=== PATIENT | female | born 1945 | race Caucasian/White ===

== ENCOUNTER 2016-12-26 21:51 | Emergency (ER) | payer MEDICARE, MEDICAID ==
[2016-12-26 22:17] VITALS: BP 122/60
--- NOTE | 2016-12-26 23:12 | EDM.PDOC ---
ED HPI GENERAL MEDICAL PROBLEM - General Chief Complaint: ENT Problem Stated Complaint: EAR PROBLEMS, [id number] Time Seen by Provider: 12/26/16 22:45 Source of Information: Reports: Patient History Limitations: Reports: No Limitations - History of Present Illness INITIAL COMMENTS - FREE TEXT/NARRATIVE: Pain to right ear since friday, no other symptoms, does wear hearing aid, has not been able to wear all week. tylenol and ibuprofen not helping Right Ear Pain Score (Numeric/FACES): 7 - Related Data Allergies Allergy/AdvReac Type Severity Reaction Status Date / Time No Known Allergies Allergy Verified 12/26/16 22:05 Home Meds: Home Meds Acetaminophen [Tylenol Arthritis Pain] 1,300 mg PO DAILY PRN 04/18/14 [History] Aspirin 81 mg PO DAILY 12/26/14 [History] Celecoxib 200 mg PO DAILY 12/26/14 [History] Glimepiride 1 mg PO DAILY 12/26/14 [History] atorvaSTATin [Lipitor] 10 mg PO BEDTIME 12/26/14 [History] metFORMIN [Glucophage] 500 mg PO BIDMEALS 12/26/14 [History] Pantoprazole [ProTONIX] 40 mg PO ACBREAKFAST #30 tab.cr 12/28/14 [Rx] Past Medical History HEENT History: Reports: Hard of Hearing Cardiovascular History: Reports: High Cholesterol Respiratory History: Reports: COPD, Pneumonia, Recurrent Gastrointestinal History: Reports: GERD Musculoskeletal History: Reports: Osteoarthritis Endocrine/Metabolic History: Reports: Diabetes, Type II - Infectious Disease History Infectious Disease History: Reports: Chicken Pox, Measles, Mumps - Past Surgical History GI Surgical History: Reports: Appendectomy, Cholecystectomy Social & Family History - Tobacco Use Smoking Status *Q: Current Every Day Smoker Years of Tobacco use: 53 Packs/Tins Daily: 1 Second Hand Smoke Exposure: Yes - Caffeine Use Caffeine Use: Reports: None - Recreational Drug Use Recreational Drug Use: No - Living Situation & Occupation Living situation: Reports: with Family Occupation: Employed ED ROS ENT - Review of Systems Review Of Systems: ROS reveals no pertinent complaints other than HPI. ED EXAM, ENT - Physical Exam Exam: See Below Exam Limited By: No Limitations General Appearance: Alert, Mild Distress Eye Exam: Bilateral Eye: EOMI Ears: Hearing Loss, Auricular Erythema, Auricular Tenderness, Canal Swelling Nose: Normal Inspection Mouth/Throat: Normal Inspection Head: Atraumatic, Normocephalic Neck: Normal Inspection. No: Lymphadenopathy (L), Lymphadenopathy (R) Respiratory/Chest: No Respiratory Distress, Lungs Clear Cardiovascular: Normal Peripheral Pulses GI/Abdominal: Normal Bowel Sounds, Soft Extremities: Normal Inspection Neurological: Alert, Oriented, Normal Cognition Course - Vital Signs Last Recorded V/S: Last Vital Signs Temp 97.8 F 12/26/16 22:07 Pulse 94 12/26/16 22:07 Resp 22 H 12/26/16 22:07 BP 122/60 12/26/16 22:07 Pulse Ox 94 L 12/26/16 22:07 - Orders/Labs/Meds Meds: Medications Discontinued Medications Generic Name Dose Route Start Last Admin Trade Name Freq PRN Reason Stop Dose Admin Neomycin/Polymyxin/Hydrocortisone Confirm 12/26/16 23:20 Cortisporin Otic Susp Administered 12/26/16 23:21 Dose 10 ml .ROUTE .STK-MED ONE Departure - Departure Time of Disposition: 23:09 Disposition: Home, Self-Care 01 Condition: Good Clinical Impression: Otitis externa Qualifiers: Otitis externa type: unspecified type Chronicity: acute Laterality: right Qualified Code(s): H60.501 - Unspecified acute noninfective otitis externa, right ear - Discharge Information Instructions: Otitis Externa, [id number] Forms: ED Department Discharge Additional Instructions: ofloxacin ear drops 1 to right ear daily for one week do not wear hearing aid until ear canal healed recheck in clinic in one week tylenol or ibuprofen for discomfort
[2016-12-26] MEDS ORDERED: Hydrocortisone/Neomycin/Polymyxin B Otic Susp 10 ML Bottle EARRT ONE (23:20)
[2016-12-26] MEDS ORDERED: Hydrocortisone/Neomycin/Polymyxin B Otic Susp 10 ML Bottle ONE (23:20)
== END 2016-12-26 23:23 | disposition home or self-care (01) ==
LOC: DL.ED 21:51
DX: H60.501 Unspecified acute noninfective otitis externa, right ear (principal); E78.00 Pure hypercholesterolemia, unspecified; J44.9 Chronic obstructive pulmonary disease, unspecified; K21.9 Gastro-esophageal reflux disease without esophagitis; M19.90 Unspecified osteoarthritis, unspecified site; E11.9 Type 2 diabetes mellitus without complications; F17.210 Nicotine dependence, cigarettes, uncomplicated; Z87.01 Personal history of pneumonia (recurrent); Z90.49 Acquired absence of other specified parts of digestive tract; Z79.82 Long term (current) use of aspirin; Z79.899 Other long term (current) drug therapy
CPT/HCPCS: 99283; A9270

== ENCOUNTER 2017-02-22 09:48 | Emergency (ER) | payer MEDICARE, MEDICAID ==
[2017-02-22 10:15] VITALS: BP 154/70
[2017-02-22] MEDS ORDERED: Acetaminophen/HYDROcodone 325-5 MG Tab PO ONE (10:40)
--- NOTE | 2017-02-22 10:47 | EDM.PDOC ---
ED HPI GENERAL MEDICAL PROBLEM - General Chief Complaint: Lower Extremity Injury/Pain Stated Complaint: LEFT LEG PAIN Time Seen by Provider: 02/22/17 10:32 Source of Information: Reports: Patient History Limitations: Reports: No Limitations - History of Present Illness INITIAL COMMENTS - FREE TEXT/NARRATIVE: Patient comes emergency department today with complaints of left hip pain from a fall that she had approximately 4 days ago. 4 days ago the patient was walking down steps when she slipped and fell on the last 3 steps landing on her buttocks. She did not hit her head she did not have a loss of consciousness she denies any head neck or back pain. Since that time she has complained of left posterior hip pain that radiates down her left leg. She denies any pain to her knee femur tib-fib ankle or foot. Just radiating pain from her left hip down her left leg. She has not tried any Tylenol or ibuprofen until last night when she tried tramadol which did nothing for her pain she reports. She is able to ambulate without difficulty. She denies any difficulty with bowel movements. She denies any back pain. She denies any hematuria dysuria or urinary frequency. She denies any numbness or tingling to her lower left extremity. Left Ankle Pain Score (Numeric/FACES): 10 - Related Data Allergies Allergy/AdvReac Type Severity Reaction Status Date / Time bee venom protein (honey bee) Allergy Swelling Verified 02/22/17 10:15 Home Meds: Home Meds Aspirin 81 mg PO DAILY 12/26/14 [History] Celecoxib 200 mg PO DAILY 12/26/14 [History] Glimepiride 1 mg PO DAILY 12/26/14 [History] atorvaSTATin [Lipitor] 10 mg PO BEDTIME 12/26/14 [History] metFORMIN [Glucophage] 500 mg PO BIDMEALS 12/26/14 [History] Pantoprazole [ProTONIX] 40 mg PO ACBREAKFAST #30 tab.cr 12/28/14 [Rx] Fluticasone/Salmeterol [Advair Diskus 100-50] 1 puff INH DAILY 02/22/17 [History ] Past Medical History HEENT History: Reports: Hard of Hearing, Impaired Vision Other HEENT History: wears glasses Cardiovascular History: Reports: High Cholesterol Respiratory History: Reports: COPD, Pneumonia, Recurrent Gastrointestinal History: Reports: GERD Genitourinary History: Reports: None EXERCISE SPECIALIST History: Reports: None Musculoskeletal History: Reports: Osteoarthritis Neurological History: Reports: None Psychiatric History: Reports: None Endocrine/Metabolic History: Reports: Diabetes, Type II Hematologic History: Reports: None Immunologic History: Reports: None Oncologic (Cancer) History: Reports: None Dermatologic History: Reports: None - Infectious Disease History Infectious Disease History: Reports: Chicken Pox, Measles, Mumps - Past Surgical History Head Surgeries/Procedures: Reports: None GI Surgical History: Reports: Appendectomy, Cholecystectomy Social & Family History - Tobacco Use Smoking Status *Q: Current Every Day Smoker Years of Tobacco use: 53 Packs/Tins Daily: 1 Second Hand Smoke Exposure: No - Caffeine Use Caffeine Use: Reports: Coffee - Recreational Drug Use Recreational Drug Use: No - Living Situation & Occupation Living situation: Reports: with Family Occupation: Employed Review of Systems - Review of Systems Review Of Systems: ROS reveals no pertinent complaints other than HPI. ED EXAM, GENERAL - Physical Exam Exam: See Below Exam Limited By: No Limitations General Appearance: Alert, WD/WN, No Apparent Distress Eye Exam: Bilateral Eye: Normal Inspection Ears: Normal External Exam, Normal Canal, Normal TMs, Other (No hemotympanum) Nose: Normal Inspection, Normal Mucosa, No Blood Throat/Mouth: Normal Inspection, Normal Lips, Normal Teeth, Normal Oropharynx, Normal Voice Head: Atraumatic, Normocephalic Neck: Normal Inspection, Supple, Non-Tender, Full Range of Motion Respiratory/Chest: No Respiratory Distress, Lungs Clear Cardiovascular: Normal Peripheral Pulses, Regular Rate, Rhythm Peripheral Pulses: 2+: Radial (L), Radial (R), Posterior Tibial (L), Posterior Tibial (R), Dorsalis Pedis (L), Dorsalis Pedis (R) GI/Abdominal: Normal Bowel Sounds, Soft, Non-Tender, No Distention, Pelvis Stable (Female) Exam: Deferred Rectal (Female) Exam: Deferred Back Exam: Normal Inspection, Full Range of Motion. No: Decreased Range of Motion, Muscle Spasm, Paraspinal Tenderness, Vertebral Tenderness Extremities: Normal Inspection, Normal Range of Motion, No Pedal Edema, Normal Capillary Refill, Other (Examination of the pelvis and left leg. On the left leg there is a small faded bruise approximately 4 cm down on the left lateral aspect of the leg below the patella. There is no crepitus or bony deformity. Examination of the foot ankle knee femur and tib-fib region are otherwise unremarkable with normal range of motion and no tenderness. Palpation of the left hip does elicit some pain primarily soft tissue palpation on the posterior aspect of the left buttocks. There is no bruising swelling deformity or crepitus.) Neurological: Alert, Oriented, CN II-XII Intact, Normal Cognition, Normal Reflexes Psychiatric: Normal Affect, Normal Mood Skin Exam: Warm, Dry, Intact, Normal Color, No Rash Lymphatic: No Adenopathy Course - Vital Signs Last Recorded V/S: Last Vital Signs Temp 36.3 C 02/22/17 10:11 Pulse 97 02/22/17 10:11 Resp 16 02/22/17 10:11 BP 154/70 H 02/22/17 10:11 Pulse Ox 95 02/22/17 10:11 - Orders/Labs/Meds Orders: Active Orders 24 hr Category Date Time Status Hip Min 2V or 3V w Pelvis Lt [CR] Stat Exams 02/22/17 10:37 Taken Meds: Medications Discontinued Medications Generic Name Dose Route Start Last Admin Trade Name Javy PRN Reason Stop Dose Admin Hydrocodone Bitart/Acetaminophen 1 tab 02/22/17 10:40 02/22/17 10:49 [place] 325-5 Mg PO 02/22/17 10:41 1 tab ONETIME ONE Administration - Radiology Interpretation Free Text/Narrative:: Per radiology no acute fracture. Degenerative changes of the left greater than the right hip. - Re-Assessments/Exams Free Text/Narrative Re-Assessment/Exam: 02/22/17 11:50 Patient's pain was much improved following the hydrocodone. I wonder if this is not a sciatica irritation due to the presentation of the buttocks pain that radiates down her leg. 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 Departure - Departure Time of Disposition: 11:50 Disposition: Home, Self-Care 01 Clinical Impression: Injury of left sciatic nerve Qualifiers: Encounter type: initial encounter Qualified Code(s): S74.02XA - Injury of sciatic nerve at hip and thigh level, left leg, initial encounter - Discharge Information Instructions: Sciatica With Rehab-Sports[facility], Sciatica, [id number] Forms: ED Department Discharge Additional Instructions: Tylenol and/or ibuprofen as needed for pain. Rice therapy rest ice compression and elevation as much as possible. Continue to keep moving and doing exercises as doing to Little can make you more stiff. Heat or ice to the area whatever is more comfortable or efficacious for you. Flexeril 1 tab 3 times a day as needed for muscle spasms pain. Caution sedation Rx given to patient. Return to the emergency department if new or worsening symptoms. Recheck with primary care provider in the next week if not improving sooner if worse. - My Orders Last 24 Hours: My Active Orders 02/22/17 10:37 Hip Min 2V or 3V w Pelvis Lt [CR] Stat - Assessment/Plan Last 24 Hours: My Active Orders 02/22/17 10:37 Hip Min 2V or 3V w Pelvis Lt [CR] Stat Assessment:: Left sciatica pain SP fall. Plan: Tylenol and/or ibuprofen as needed for pain. Rice therapy rest ice compression and elevation as much as possible. Continue to keep moving and doing exercises as doing to Little can make you more stiff. Heat or ice to the area whatever is more comfortable or efficacious for you. Flexeril 1 tab 3 times a day as needed for muscle spasms pain. Caution sedation Rx given to patient. Return to the emergency department if new or worsening symptoms. Recheck with primary care provider in the next week if not improving sooner if worse.
== END 2017-02-22 12:02 | disposition home or self-care (01) ==
LOC: DL.ED 09:48
DX: S74.02XA Injury of sciatic nerve at hip and thigh level, left leg, initial encounter (principal); J44.9 Chronic obstructive pulmonary disease, unspecified; E78.00 Pure hypercholesterolemia, unspecified; K21.9 Gastro-esophageal reflux disease without esophagitis; E11.9 Type 2 diabetes mellitus without complications; F17.210 Nicotine dependence, cigarettes, uncomplicated; Z90.49 Acquired absence of other specified parts of digestive tract; Z79.84 Long term (current) use of oral hypoglycemic drugs; Z79.82 Long term (current) use of aspirin; Z91.030 Bee allergy status; Z79.899 Other long term (current) drug therapy; W10.8XXA Fall (on) (from) other stairs and steps, initial encounter
CPT/HCPCS: 73502; 99284; A9270

== ENCOUNTER 2017-09-08 16:51 | Inpatient (IN) | payer MEDICARE, MEDICAID ==
[2017-09-08 18:26] LABS: CHLORIDE,CL 101 mmol/L (101-111); SODIUM,NA 136 mmol/L (135-145)
--- NOTE | 2017-09-08 18:26 | EDM.PDOC ---
<Fausto Gallagher - Last Filed: 09/08/17 18:26> ED HPI GENERAL MEDICAL PROBLEM - General Chief Complaint: Respiratory Problem Stated Complaint: [id number] TROUBLE BREATHING Time Seen by Provider: 09/08/17 19:09 Left Lower Chest Pain Score (Numeric/FACES): 10 - Related Data Allergies Allergy/AdvReac Type Severity Reaction Status Date / Time bee venom protein (honey bee) Allergy Swelling Verified 09/08/17 17:26 Home Meds: Home Meds Aspirin 81 mg PO DAILY 12/26/14 [History] Celecoxib 200 mg PO DAILY 12/26/14 [History] Glimepiride 1 mg PO DAILY 12/26/14 [History] atorvaSTATin [Lipitor] 10 mg PO BEDTIME 12/26/14 [History] metFORMIN [Glucophage] 500 mg PO BIDMEALS 12/26/14 [History] Fluticasone/Salmeterol [Advair Diskus 100-50] 1 puff INH DAILY 02/22/17 [History ] Past Medical History HEENT History: Reports: Hard of Hearing, Impaired Vision Other HEENT History: wears glasses Cardiovascular History: Reports: High Cholesterol Respiratory History: Reports: COPD, Pneumonia, Recurrent Gastrointestinal History: Reports: GERD Genitourinary History: Reports: None SUSPENDER CUTTER History: Reports: None Musculoskeletal History: Reports: Osteoarthritis Neurological History: Reports: None Psychiatric History: Reports: None Endocrine/Metabolic History: Reports: Diabetes, Type II Hematologic History: Reports: None Immunologic History: Reports: None Oncologic (Cancer) History: Reports: None Dermatologic History: Reports: None - Infectious Disease History Infectious Disease History: Reports: Chicken Pox, Measles, Mumps - Past Surgical History Head Surgeries/Procedures: Reports: None GI Surgical History: Reports: Appendectomy, Cholecystectomy Social & Family History - Tobacco Use Smoking Status *Q: Current Every Day Smoker Years of Tobacco use: 53 Packs/Tins Daily: 1 Tobacco Use Comment: states she has not smoked in three days Second Hand Smoke Exposure: No - Caffeine Use Caffeine Use: Reports: Coffee - Recreational Drug Use Recreational Drug Use: No - Living Situation & Occupation Living situation: Reports: with Family Occupation: Employed Course - Vital Signs Last Recorded V/S: Last Vital Signs Temp 36.4 C 09/08/17 17:10 Pulse 130 H 09/08/17 17:10 Resp 20 09/08/17 17:10 BP 108/58 L 09/08/17 17:10 Pulse Ox 92 L 09/08/17 17:10 - Orders/Labs/Meds Orders: Active Orders 24 hr Category Date Time Status EKG Documentation Completion [RC] URGENT Care 09/08/17 17:52 Active Chest 2V [CR] Urgent Exams 09/08/17 17:52 Taken CULTURE BLOOD [BC] Stat Lab 09/08/17 18:30 Received CULTURE BLOOD [BC] Stat Lab 09/08/17 18:34 Received INFLUENZA A+B AG SCREEN [RM] Stat Lab 09/08/17 18:08 Ordered UA W/MICROSCOPIC [URIN] Stat Lab 09/08/17 18:20 Ordered Sodium Chloride 0.9% [Normal Saline] 1,000 ml Med 09/08/17 18:30 Active IV ASDIRECTED Blood Culture x2 Reflex Set [OM.PC] Stat Oth 09/08/17 18:20 Ordered Medication Orders Sodium Chloride (Normal Saline) 1,000 mls @ 125 mls/hr IV ASDIRECTED KATHERIN Last Admin: 09/08/17 18:32 Dose: 125 mls/hr Labs: Laboratory Tests 09/08/17 09/08/17 09/08/17 Range/Units 18:00 18:00 18:30 WBC 30.6 H* (5.0-10.0) 10^3/uL RBC 5.04 (4.2-5.4) 10^6/uL Hgb 15.2 D (12.0-16.0) g/dL Hct 44.8 (37.0-47.0) % MCV 88.9 D (80-100) fL MCH 30.2 (27.0-34.0) pg MCHC 33.9 (33.0-35.0) g/dL Plt Count 349 D (150-450) 10^3/uL Neut % (Auto) 92.6 H (42.2-75.2) % Lymph % (Auto) 3.4 L (20.5-50.1) % [place] % (Auto) 3.9 (2-8) % Eos % (Auto) 0.0 L (1.0-3.0) % Baso % (Auto) 0.1 (0.0-1.0) % Add Manual Diff Yes Neutrophils % (Manual) 81 H (42-75) % Band Neutrophils % 6 % Lymphocytes % (Manual) 6 L (20-50) % Monocytes % (Manual) 7 (2-8) % Sodium 136 (135-145) mmol/L Potassium 4.2 (3.6-5.0) mmol/L Chloride 101 (101-111) mmol/L Carbon Dioxide 22.0 (21.0-31.0) mmol/L Anion Gap 17.2 BUN 22 H (7-18) mg/dL Creatinine 1.0 (0.6-1.3) mg/dL Est Cr Clr Drug Dosing 41.40 mL/min Estimated GFR (MDRD) 55 BUN/Creatinine Ratio 22.00 Glucose 127 H (74-105) mg/dL Lactic Acid 3.7 H (0.5-2.2) mmol/L Calcium 8.9 (8.4-10.2) mg/dl Total Bilirubin 1.3 H (0.2-1.0) mg/dL AST 26 (10-42) IU/L ALT 23 (10-60) IU/L Alkaline Phosphatase 64 (42-121) IU/L Troponin I < 0.02 (0.00-0.02) ng/ml Total Protein 7.1 (6.7-8.2) g/dl Albumin 3.7 (3.2-5.5) g/dl Globulin 3.4 Albumin/Globulin Ratio 1.09 Meds: Medications Generic Name Dose Route Start Last Admin Trade Name Freq PRN Reason Stop Dose Admin Sodium Chloride 1,000 mls @ 125 mls/hr 09/08/17 18:30 09/08/17 18:32 Normal Saline IV 125 mls/hr ASDIRECTED KATHERIN Administration Departure - Departure Disposition: Admitted As Inpatient 68 Clinical Impression: Pneumonia Qualifiers: Pneumonia type: due to unspecified organism Laterality: bilateral Lung location : unspecified part of lung Qualified Code(s): J18.9 - Pneumonia, unspecified organism Sepsis Qualifiers: Sepsis type: sepsis due to unspecified organism Qualified Code(s): A41.9 - Sepsis, unspecified organism - Discharge Information Forms: ED Department Discharge <Tomás Mitchell - Last Filed: 09/08/17 19:18> ED HPI GENERAL MEDICAL PROBLEM - General Source of Information: Reports: Patient History Limitations: Reports: No Limitations - History of Present Illness INITIAL COMMENTS - FREE TEXT/NARRATIVE: states was fine yesterday. woke up this am @ 4am with cough left chest pain F/C. ED ROS GENERAL - Review of Systems Review Of Systems: ROS reveals no pertinent complaints other than HPI. ED EXAM, GENERAL - Physical Exam Exam: See Below Exam Limited By: No Limitations General Appearance: Alert, WD/WN, Mild Distress, Other (cough spasms) Ears: Hearing Grossly Normal Throat/Mouth: Normal Voice, No Airway Compromise Head: Atraumatic Neck: Non-Tender, Full Range of Motion Respiratory/Chest: No Accessory Muscle Use, Decreased Breath Sounds, Rales, Rhonchi. No: Retractions, Splinting Cardiovascular: Regular Rate, Rhythm GI/Abdominal: Soft, Non-Tender Neurological: Alert, Oriented, Normal Cognition, Normal Gait, No Motor/Sensory Deficits Psychiatric: Flat Affect Skin Exam: Warm, Dry, Normal Color Lymphatic: No Adenopathy Course - Re-Assessments/Exams Free Text/Narrative Re-Assessment/Exam: 09/08/17 19:[address] Abdullahi smith kindly admitted pt. Departure - Departure Time of Disposition: 19:16 Condition: Good
[2017-09-08] MEDS: Sodium Chloride 0.9% 1,000 ML IV SCH ×2 (18:32→21:24)
[2017-09-08] MEDS ORDERED: Albuterol 0.083% 2.5 MG/3 ML Neb Soln NEB PRN (19:58)
[2017-09-08] MEDS ORDERED: Magnesium Hydroxide 400 MG/5 ML Susp 30 ML Cup PO PRN (19:58)
[2017-09-08] MEDS ORDERED: Acetaminophen/HYDROcodone 325-10 MG Tab PO PRN ×2 (19:58→20:17)
[2017-09-08] MEDS ORDERED: Polyethylene Glycol 3350 Powder 17 GM Packet PO PRN (19:58)
[2017-09-08] MEDS ORDERED: Ondansetron 4 MG/2 ML SDV IVPUSH PRN (19:58)
[2017-09-08] MEDS ORDERED: Albuterol/Ipratropium 3.0-0.5 MG/3 ML Neb Soln NEB SCH (20:00)
[2017-09-08] MEDS ORDERED: Sodium Chloride 0.9% 1,000 ML IV SCH ×2 (20:00)
[2017-09-08] MEDS ORDERED: [UNRECOGNIZED DRUG - OTHER] PO PRN (20:03)
[2017-09-08] MEDS ORDERED: Morphine 2 MG/ML Syringe IVPUSH PRN (20:17)
--- NOTE | 2017-09-08 20:29 | PCM.HP ---
H&P History of Present Illness - General Date of Service: 09/08/17 Admit Problem/Dx: Admission Diagnosis/Problem Admission Diagnosis/Problem Pneumonia Source of Information: Patient History Limitations: Reports: No Limitations - History of Present Illness Initial Comments - Free Text/Narative: 72 year-old female was best medical history of COPD, recurrent pneumonia, GERD, osteoarthritis, diabetes mellitus, currently smoke, presented to the emergency room or having difficulty breathing, productive cough, wheezing, rattling, left posterior lower chest pain with deep breathing and coughing started 2 days ago and today at 4 AM she woke up with worsening symptoms and fever, chills, vomiting, body aches, headache, dry mouth, decrease in urination. She stated that her cough is producing pus-tasting phlegm. Patient stated that she did not urinate since this morning she has been having dry mouth. Patient denies frontal chest pain, change in vision, abdominal pain, diarrhea, blood in stool, black stool blood in the urine, dysuria, urinary frequency, lower extremities edema, unilateral weakness/numbness/tingling, rash, change in mood, or any other symptoms or concerns. Her admission lab reported WBC 30.6 K with left shift. Sodium 136. Potassium 4.2. BNP 122. Creatinine 1.0. Blood glucose 127. Lactic acid 3.7. Total bilirubin 1.3. Chest x-ray reported bilateral opacities. On exam patient seems to have mild tachypnea with dry mouth and tenting skin. She had rattling breathing noise and auscultation she had diffuse wheezing and rhonchi but I did not hear rales or crackles. However no accessory muscle usage. She is able to complete short sentences without breathing interruption. Left Lower Chest Pain Score (Numeric/FACES): 10 - Related Data Allergies/Adverse Reactions: Allergies Allergy/AdvReac Type Severity Reaction Status Date / Time bee venom protein (honey bee) Allergy Swelling Verified 09/08/17 17:26 Home Medications: Home Meds Aspirin 81 mg PO DAILY 12/26/14 [History] Celecoxib 200 mg PO DAILY 12/26/14 [History] Glimepiride 1 mg PO DAILY 12/26/14 [History] atorvaSTATin [Lipitor] 10 mg PO BEDTIME 12/26/14 [History] metFORMIN [Glucophage] 500 mg PO BIDMEALS 08/03/15 [History] Fluticasone/Salmeterol [Advair Diskus 100-50] 1 puff INH DAILY 02/22/17 [History ] Phenylephrine/Dm/Acetaminop/Gg [Mucinex Fast-Max Cold-Flu Cplt] 2 caplet PO Q4HR PRN 09/08/17 [History] traMADol [Ultram] 50 mg PO Q6H PRN 09/08/17 [History] Past Medical History HEENT History: Reports: Hard of Hearing, Impaired Vision Other HEENT History: wears glasses Cardiovascular History: Reports: High Cholesterol Respiratory History: Reports: COPD, Pneumonia, Recurrent Gastrointestinal History: Reports: GERD Genitourinary History: Reports: None, Urinary Incontinence [employer]ER History: Reports: None, Musculoskeletal History: Reports: Osteoarthritis Neurological History: Reports: None, Other (See Below) Other Neuro History: sciatica Psychiatric History: Reports: None Endocrine/Metabolic History: Reports: Diabetes, Type II Hematologic History: Reports: None Immunologic History: Reports: None Oncologic (Cancer) History: Reports: None Dermatologic History: Reports: None - Infectious Disease History Infectious Disease History: Reports: Chicken Pox, Measles, Mumps - Past Surgical History Head Surgeries/Procedures: Reports: None GI Surgical History: Reports: Appendectomy, Cholecystectomy Social & Family History - Family History Family Medical History: Noncontributory - Tobacco Use Smoking Status *Q: Current Every Day Smoker Years of Tobacco use: 53 Packs/Tins Daily: 1 Tobacco Use Comment: states she has not smoked in three days Second Hand Smoke Exposure: No - Caffeine Use Caffeine Use: Reports: Coffee - Recreational Drug Use Recreational Drug Use: No - Living Situation & Occupation Living situation: Reports: with Family Occupation: Employed H&P Review of Systems - Review of Systems: Review Of Systems: ROS reveals no pertinent complaints other than HPI. Exam - Exam Exam: See Below - Vital Signs Vital Signs: Last Vital Signs Temp 38.2 C H 09/08/17 19:23 Pulse 116 H 09/08/17 19:23 Resp 22 H 09/08/17 19:23 BP 107/64 09/08/17 19:23 Pulse Ox 90 L 09/08/17 19:23 Weight: 68.039 kg - Exam General: Alert, Oriented, Cooperative, Moderate Distress. No: Severe Distress, Sedated, Lethargic, Obtunded HEENT: Conjunctiva Clear, EACs Clear, EOMI, Hearing Intact, Nares Patent, Normal Nasal Septum, Posterior Pharynx Clear, Pupils Equal, Pupils Reactive, Other (Dry mucosa) Neck: Supple, Trachea Midline, +2 Carotid Pulse wo Bruit Lungs: Decreased Breath Sounds (Globally but her air exchange), Rhonchi, Wheezing. No: Crackles, Rales, Rub, Stridor Cardiovascular: Regular Rhythm, Normal S1, Normal S2 GI/Abdominal Exam: Normal Bowel Sounds, Soft, Non-Tender, No Organomegaly (Female) Exam: Deferred Rectal (Female) Exam: Deferred Back Exam: Normal Inspection, Full Range of Motion. No: CVA Tenderness (L), CVA Tenderness (R) Extremities: Normal Inspection, Normal Range of Motion, Non-Tender, No Pedal Edema, Normal Capillary Refill Skin: Warm, Dry, Other (Tenting sign is positive) Neuro Extensive - Mental Status: Alert, Oriented x3, Normal Mood/Affect, Normal Cognition, Memory Intact. No: Disorientation to Person, Disorientation to Place , Disorientation to Time Neuro Extensive - Motor, Sensory, Reflexes: CN II-XII Intact. No: Motor/ Sensory Deficits Psychiatric: Alert, Normal Affect, Normal Mood. No: Labile Mood, Anxious, Depressed, Agitated, Suicidal Ideation, Homicidal Ideation, Hallucinations, Withdrawal Symptoms - Patient Data Lab Results Last 24 hrs: Laboratory Results - last 24 hr 09/08/17 09/08/17 09/08/17 Range/Units 18:00 18:00 18:30 WBC 30.6 H* (5.0-10.0) 10^3/uL RBC 5.04 (4.2-5.4) 10^6/uL Hgb 15.2 D (12.0-16.0) g/dL Hct 44.8 (37.0-47.0) % MCV 88.9 D (80-100) fL MCH 30.2 (27.0-34.0) pg MCHC 33.9 (33.0-35.0) g/dL Plt Count 349 D (150-450) 10^3/uL Neut % (Auto) 92.6 H (42.2-75.2) % Lymph % (Auto) 3.4 L (20.5-50.1) % Simpson % (Auto) 3.9 (2-8) % Eos % (Auto) 0.0 L (1.0-3.0) % Baso % (Auto) 0.1 (0.0-1.0) % Add Manual Diff Yes Neutrophils % (Manual) 81 H (42-75) % Band Neutrophils % 6 % Lymphocytes % (Manual) 6 L (20-50) % Monocytes % (Manual) 7 (2-8) % Sodium 136 (135-145) mmol/L Potassium 4.2 (3.6-5.0) mmol/L Chloride 101 (101-111) mmol/L Carbon Dioxide 22.0 (21.0-31.0) mmol/L Anion Gap 17.2 BUN 22 H (7-18) mg/dL Creatinine 1.0 (0.6-1.3) mg/dL Est Cr Clr Drug Dosing 41.40 mL/min Estimated GFR (MDRD) 55 BUN/Creatinine Ratio 22.00 Glucose 127 H (74-105) mg/dL Lactic Acid 3.7 H (0.5-2.2) mmol/L Calcium 8.9 (8.4-10.2) mg/dl Total Bilirubin 1.3 H (0.2-1.0) mg/dL AST 26 (10-42) IU/L ALT 23 (10-60) IU/L Alkaline Phosphatase 64 (42-121) IU/L Troponin I < 0.02 (0.00-0.02) ng/ml Total Protein 7.1 (6.7-8.2) g/dl Albumin 3.7 (3.2-5.5) g/dl Globulin 3.4 Albumin/Globulin Ratio 1.09 Result Diagrams: 09/08/17 18:00 09/08/17 18:00 Albert Results Last 24 hrs: Microbiology 09/08/17 18:08 Influenza Type A Antigen Screen - Final Nasal, Unspecified NEGATIVE INFLUENZA A VIRUS AG Influenza Type B Antigen Screen - Final NEGATIVE INFLUENZA B VIRUS AG - Problem List (1) COPD exacerbation SNOMED Code(s): 086677899 ICD Code: J44.1 - CHRONIC OBSTRUCTIVE PULMONARY DISEASE W (ACUTE) EXACERBATION Status: Acute Priority: High Current Visit: Yes (2) Diabetes mellitus SNOMED Code(s): 15749569 ICD Code: E11.9 - TYPE 2 DIABETES MELLITUS WITHOUT COMPLICATIONS Status: Chronic Current Visit: Yes (3) Osteoarthritis of knee SNOMED Code(s): 103034814 ICD Code: M17.9 - OSTEOARTHRITIS OF KNEE, UNSPECIFIED Status: Chronic Current Visit: No (4) Pneumonia SNOMED Code(s): 459086361 ICD Code: J18.9 - PNEUMONIA, UNSPECIFIED ORGANISM Status: Acute Priority : High Current Visit: No Qualifiers: Pneumonia type: due to unspecified organism Laterality: bilateral Lung location: unspecified part of lung Qualified Code(s): J18.9 - Pneumonia, unspecified organism (5) Sepsis SNOMED Code(s): 92643291 ICD Code: A41.9 - SEPSIS, UNSPECIFIED ORGANISM Status: Acute Priority: High Current Visit: No Qualifiers: Sepsis type: sepsis due to unspecified organism Qualified Code(s): A41.9 - Sepsis, unspecified organism Problem List Initiated/Reviewed/Updated: Yes Orders Last 24hrs: Active Orders 24 hr Category Date Time Status Patient Status [ADT] Routine ADT 09/08/17 19:58 Ordered EKG Documentation Completion [RC] URGENT Care 09/08/17 17:52 Active Flutter Valve Therapy [RT Chest Physiotherapy] [RC] Care 09/08/17 20:18 Ordered ASDIRECTED Height and Weight [RC] DAILY Care 09/08/17 19:58 Ordered Intake and Output [RC] Q6H Care 09/08/17 19:59 Ordered Notify Provider Vital Signs [RC] ASDIRECTED Care 09/08/17 19:59 Ordered Oxygen Therapy [RC] PRN Care 09/08/17 19:58 Ordered Pulse Oximetry [RC] PRN Care 09/08/17 19:59 Ordered RT Aerosol Therapy [RC] ASDIRECTED Care 09/08/17 20:01 Ordered RT Incentive Spirometry [RC] ASDIRECTED Care 09/08/17 20:18 Ordered Up ad Paula [RC] ASDIRECTED Care 09/08/17 19:58 Ordered VTE/DVT Education [RC] PER UNIT ROUTINE Care 09/08/17 19:58 Ordered Vital Signs [RC] Q4H Care 09/08/17 19:58 Ordered Consistent Carbohydrate Diet [DIET] Diet 09/09/17 Breakfast Ordered Chest 2V [CR] Timed Exams 09/10/17 06:00 Ordered BASIC METABOLIC PANEL,BMP [CHEM] AM Lab 09/09/17 05:11 Ordered CBC WITH AUTO DIFF [HEME] AM Lab 09/09/17 05:11 Ordered CULTURE BLOOD [BC] Stat Lab 09/08/17 18:30 Received CULTURE BLOOD [BC] Stat Lab 09/08/17 18:34 Received CULTURE SPUTUM + SMEAR [RM] Stat Lab 09/08/17 19:58 Ordered INFLUENZA A+B AG SCREEN [RM] Stat Lab 09/08/17 18:08 Ordered LACTIC ACID [CHEM] AM Lab 09/09/17 05:11 Ordered MAGNESIUM [CHEM] AM Lab 09/09/17 05:11 Ordered UA W/MICROSCOPIC [URIN] Stat Lab 09/08/17 18:20 Ordered Acetaminophen [Tylenol] Med 09/08/17 19:58 Ordered 650 mg PO Q4H PRN Acetaminophen/HYDROcodone [[place] 325-10 MG] Med 09/08/17 20:17 Ordered 1 tab PO Q6H PRN Albuterol [Proventil Neb Soln] Med 09/08/17 19:58 Ordered 2.5 mg NEB Q2H PRN Albuterol/Ipratropium [DuoNeb 3.0-0.5 MG/3 ML] Med 09/08/17 20:00 Ordered 3 ml NEB Q6H Aspirin Med 09/09/17 09:00 Ordered 81 mg PO DAILY Azithromycin [Zithromax] 500 mg Med 09/08/17 20:00 Ordered Sodium Chloride 0.9% [Normal Saline] 250 ml IV Q24H Enoxaparin [Lovenox] Med 09/09/17 09:00 Ordered 40 mg SUBCUT DAILY Fluticasone/Salmeterol [Advair Diskus 100-50] Med 09/09/17 09:00 Ordered 1 puff INH DAILY Glimepiride [Glimepiride] Med 09/09/17 09:00 Ordered 1 mg PO DAILY Insulin Aspart [NovoLOG] Med 09/08/17 21:00 Ordered See Protocol SUBCUT QIDACANDBED Magnesium Hydroxide [Milk of Magnesia] Med 09/08/17 19:58 Ordered 30 ml PO Q12H PRN Morphine Med 09/08/17 20:17 Ordered 2 mg IVPUSH Q2H PRN Ondansetron [Zofran] Med 09/08/17 19:58 Ordered 4 mg IVPUSH Q6H PRN Phenylephrine/Dm/Acetaminop/Gg [Mucinex Fast-Max Cold- Med 09/08/17 20:03 Ordered Flu Cplt] 2 caplet PO Q4HR PRN Polyethylene Glycol 3350 [MiraLAX] Med 09/08/17 19:58 Ordered 17 gm PO DAILY PRN Sodium Chloride 0.9% @ 150 MLS/HR (1000ml) Med 09/08/17 20:00 Ordered Sodium Chloride 0.9% [Normal Saline] 1,000 ml IV ASDIRECTED Sodium Chloride 0.9% [Normal Saline] 1,000 ml Med 09/08/17 20:00 Ordered IV .BOLUS Sodium Chloride 0.9% [Normal Saline] 1,000 ml Med 09/08/17 18:30 Active IV ASDIRECTED Zolpidem [Ambien] Med 09/08/17 19:58 Ordered 5 mg PO BEDTIME PRN atorvaSTATin [Lipitor] Med 09/08/17 21:00 Ordered 10 mg PO BEDTIME cefTRIAXone [Rocephin] 1 mg Med 09/08/17 19:57 Ordered Sodium Chloride 0.9% [Normal Saline] 100 ml IV Q24H metFORMIN [Glucophage] Med 09/09/17 08:00 Ordered 500 mg PO BIDMEALS methylPREDNISolone Sod Succ [Solu-MEDROL] 1,000 mg Med 09/08/17 20:30 Ordered Sodium Chloride 0.9% [Normal Saline] 100 ml IV Q12H Blood Culture x2 Reflex Set [OM.PC] Stat Oth 09/08/17 18:20 Ordered Resuscitation Status Routine Resus Stat 09/08/17 19:58 Ordered Medication Orders Acetaminophen (Tylenol) 650 mg PO Q4H PRN PRN Reason: Pain (Mild 1-3)/fever Hydrocodone Bitart/Acetaminophen ([place] 325-10 Mg) 1 tab PO Q6H PRN PRN Reason: Pain (moderate 4-6) Albuterol (Proventil Neb Soln) 2.5 mg NEB Q2H PRN PRN Reason: shortness of breath/wheezing Albuterol/Ipratropium (Duoneb 3.0-0.5 Mg/3 Ml) 3 ml NEB Q6H KATHERIN Aspirin (Aspirin) 81 mg PO DAILY KATHERIN Atorvastatin Calcium (Lipitor) 10 mg PO BEDTIME KATHERIN Enoxaparin Sodium (Lovenox) 40 mg SUBCUT DAILY KATHERIN Glimepiride (Amaryl) 1 mg PO DAILY [facility] Sodium Chloride (Normal Saline) 1,000 mls @ 125 mls/hr IV ASDIRECTED [facility] Last Admin: 09/08/17 18:32 Dose: 125 mls/hr Azithromycin 500 mg/ Sodium (Chloride) 250 mls @ 250 mls/hr IV Q24H [facility] Ceftriaxone Sodium 1 mg/ (Sodium Chloride) 100 mls @ 200 mls/hr IV Q24H [facility] Sodium Chloride (Normal Saline) 1,000 mls @ 150 mls/hr IV ASDIRECTED [facility] Stop: 09/09/17 02:39 Sodium Chloride (Normal Saline) 1,000 mls @ 999 mls/hr IV .BOLUS [facility] Insulin Aspart (Novolog) 0 unit SUBCUT QIDACANDBED [facility]; Protocol Magnesium Hydroxide (Milk Of Magnesia) 30 ml PO Q12H PRN PRN Reason: Constipation Metformin HCl (Glucophage) 500 mg PO BIDMEALS [facility] Mometasone Furoate/Formoterol Fumar ([place]ul[place] 100-5 Mcg) 2 puff IH DAILYRT [facility] Morphine Sulfate (Morphine) 2 mg IVPUSH Q2H PRN PRN Reason: sever pain (7-10) Nf*Mucinex Fast- (Max Cold-Flu) 2 caplet PO Q4HR PRN PRN Reason: Congestion Ondansetron HCl (Zofran) 4 mg IVPUSH Q6H PRN PRN Reason: Nausea/Vomiting Polyethylene Glycol (Miralax) 17 gm PO DAILY PRN PRN Reason: Constipation Zolpidem Tartrate (Ambien) 5 mg PO BEDTIME PRN PRN Reason: Sleep Assessment/Plan Comment:: Assessment and plan 72-year-old female with the above past medical history including but not limited to COPD and recurrent pneumonia present to the emergency room with sepsis and pneumonia and lactic acidosis. #Sepsis 2 L of normal saline as a bolus then 1 L at 150 mL per hour -Start Rocephin and azithromycin Strict I&O's and daily weight 2 IV accesses #Committee acquired pneumonia -Start Rocephin and azithromycin -DuoNeb every 4 hours Flutter #Lactic acidosis 2 L of normal saline as a bolus then 1 L at 150 mL per hour -Repeat lactic acid after 3 hours from first draw and in the morning #COPD exacerbation -DuoNeb every 4 hours. -Solu Medrol 125 mg every 12 hours Continue home fluticasone/salmeterol Albuterol every 2 hours as needed #Pleurisy Tylenol, hydrocodone, morphine as needed for pain #Diabetes mellitus type 2 Continue glimepiride Hold metformin until lactic acidosis is resolved Sliding-scale insulin, NovoLog, low-dose regimen #Tobacco abuse Patient smokes one pack and a half a day. Patient was advised to quit smoking and counseled with primary care provider. Nicotine patch ordered Lovenox for DVT prophylaxis Full code for CODE STATUS Plan of care was discussed with patient who verbalized understanding agreed with the plan
[2017-09-08] MEDS ORDERED: methylPREDNISolone Sod Succ 1,000 MG in Sodium Chloride 0.9% 100 ML IV SCH (20:30)
[2017-09-08] MEDS ORDERED: methylPREDNISolone Sod Succ 125 MG in Sodium Chloride 0.9% 100 ML IV SCH (20:42)
[2017-09-08] MEDS: Acetaminophen 325 MG Tab PO PRN (20:50)
[2017-09-08] MEDS: Azithromycin 500 MG in Sodium Chloride 0.9% 250 ML IV SCH (20:51)
[2017-09-08] MEDS: methylPREDNISolone Sodium Succinate 125 MG/2 ML SDV IVPUSH SCH (21:04)
[2017-09-08] MEDS: Nicotine 21 MG/24 Hr Patch TRDERM SCH (21:05)
[2017-09-08] MEDS: atorvaSTATin 10 MG Tab PO SCH (21:05)
[2017-09-08] MEDS: Insulin Aspart 100 Units/ML 3 ML Pen SUBCUT SCH (21:16)
[2017-09-08] MEDS: Albuterol/Ipratropium 3.0-0.5 MG/3 ML Neb Soln NEB SCH (21:26)
[2017-09-08] MEDS: Zolpidem 5 MG Tab PO PRN (22:08)
[2017-09-08] MEDS: cefTRIAXone 1 GM Vial IVPUSH SCH (22:10)
[2017-09-08] MEDS ORDERED: guaiFENesin 100 MG/5 ML Soln 5 ML UD Cup PO PRN (22:52)
[2017-09-09] MEDS: Albuterol/Ipratropium 3.0-0.5 MG/3 ML Neb Soln NEB SCH ×6 (01:04→21:15)
[2017-09-09] MEDS ORDERED: Formoterol/Mometasone 100-5 MCG 8.8 GM Inhaler IH SCH (07:00)
[2017-09-09 07:10] LABS: CHLORIDE,CL 105 mmol/L (101-111); SODIUM,NA 135 mmol/L (135-145)
[2017-09-09] MEDS ORDERED: metFORMIN 500 MG Tab PO SCH (08:00)
[2017-09-09] MEDS: Insulin Aspart 100 Units/ML 3 ML Pen SUBCUT SCH ×4 (09:17→21:12)
[2017-09-09] MEDS: Glimepiride 2 MG Tab PO SCH (09:18)
[2017-09-09] MEDS: Aspirin 81 MG Tab.Chew PO SCH (09:18)
[2017-09-09] MEDS: methylPREDNISolone Sodium Succinate 125 MG/2 ML SDV IVPUSH SCH ×2 (09:18→20:33)
[2017-09-09] MEDS: Nicotine 21 MG/24 Hr Patch TRDERM SCH (09:19)
[2017-09-09] MEDS: Enoxaparin 40 MG/0.4 ML Syringe SUBCUT SCH (09:19)
[2017-09-09] MEDS: Formoterol/Mometasone 100-5 MCG 8.8 GM Inhaler IH SCH (09:19)
--- NOTE | 2017-09-09 10:32 | PCM.PN ---
- General Info Date of Service: 09/09/17 Admission Dx/Problem (Free Text): Admission Diagnosis/Problem Admission Diagnosis/Problem Pneumonia Subjective Update: Patient stated that she is feeling much better. Her shortness breath, cough, wheezing, rattling are old there but are better. She still having dry mouth . She has been urinating but still less than normal. She denies headache, chest pain, nausea, vomiting, fever, chills, abdominal pain, diarrhea, any other symptoms or concerns - Patient Data Vitals - Most Recent: Last Vital Signs Temp 37.0 C 09/09/17 08:00 Pulse 77 09/09/17 09:54 Resp 20 09/09/17 08:00 BP 110/49 L 09/09/17 08:00 Pulse Ox 97 09/09/17 08:00 Weight - Most Recent: 68.765 kg I&O - Last 24 Hours: Intake & Output 09/08/17 09/09/17 09/09/17 22:59 06:59 14:59 Intake Total 3090 1400 600 Output Total 260 1200 Balance 2830 200 600 Lab Results Last 24 Hours: Laboratory Results - last 24 hr 09/08/17 09/08/17 09/08/17 Range/Units 18:00 18:00 18:30 WBC 30.6 H* (5.0-10.0) 10^3/uL RBC 5.04 (4.2-5.4) 10^6/uL Hgb 15.2 D (12.0-16.0) g/dL Hct 44.8 (37.0-47.0) % MCV 88.9 D (80-100) fL MCH 30.2 (27.0-34.0) pg MCHC 33.9 (33.0-35.0) g/dL Plt Count 349 D (150-450) 10^3/uL Neut % (Auto) 92.6 H (42.2-75.2) % Lymph % (Auto) 3.4 L (20.5-50.1) % [place] % (Auto) 3.9 (2-8) % Eos % (Auto) 0.0 L (1.0-3.0) % Baso % (Auto) 0.1 (0.0-1.0) % Add Manual Diff Yes Neutrophils % (Manual) 81 H (42-75) % Band Neutrophils % 6 % Lymphocytes % (Manual) 6 L (20-50) % Monocytes % (Manual) 7 (2-8) % Sodium 136 (135-145) mmol/L Potassium 4.2 (3.6-5.0) mmol/L Chloride 101 (101-111) mmol/L Carbon Dioxide 22.0 (21.0-31.0) mmol/L Anion Gap 17.2 BUN 22 H (7-18) mg/dL Creatinine 1.0 (0.6-1.3) mg/dL Est Cr Clr Drug Dosing 41.40 mL/min Estimated GFR (MDRD) 55 BUN/Creatinine Ratio 22.00 Glucose 127 H (74-105) mg/dL POC Glucose (83-110) mg/dl Lactic Acid 3.7 H (0.5-2.2) mmol/L Calcium 8.9 (8.4-10.2) mg/dl Magnesium (1.8-2.5) mg/dL Total Bilirubin 1.3 H (0.2-1.0) mg/dL AST 26 (10-42) IU/L ALT 23 (10-60) IU/L Alkaline Phosphatase 64 (42-121) IU/L Troponin I < 0.02 (0.00-0.02) ng/ml Total Protein 7.1 (6.7-8.2) g/dl Albumin 3.7 (3.2-5.5) g/dl Globulin 3.4 Albumin/Globulin Ratio 1.09 Urine Color (YELLOW) Urine Appearance (CLEAR) Urine pH (5.0-9.0) Ur Specific [place] (1.005-1.030) Urine Protein (NEGATIVE) Urine Glucose (UA) (NEGATIVE) Urine Ketones (NEGATIVE) Urine Occult Blood (NEGATIVE) Urine Nitrite (NEGATIVE) Urine Bilirubin (NEGATIVE) Urine Urobilinogen (0.2-1.0) mg/dL Ur Leukocyte Esterase (NEGATIVE) Urine RBC /HPF Urine WBC (0-5/HPF) /HPF Ur Epithelial Cells /HPF Urine Bacteria (0-FEW/HPF) /HPF Urine Mucus /LPF 09/08/17 09/08/17 09/08/17 Range/Units 21:15 21:15 22:07 WBC (5.0-10.0) 10^3/uL RBC (4.2-5.4) 10^6/uL Hgb (12.0-16.0) g/dL Hct (37.0-47.0) % MCV (80-100) fL MCH (27.0-34.0) pg MCHC (33.0-35.0) g/dL Plt Count (150-450) 10^3/uL Neut % (Auto) (42.2-75.2) % Lymph % (Auto) (20.5-50.1) % [place] % (Auto) (2-8) % Eos % (Auto) (1.0-3.0) % Baso % (Auto) (0.0-1.0) % Add Manual Diff Neutrophils % (Manual) (42-75) % Band Neutrophils % % Lymphocytes % (Manual) (20-50) % Monocytes % (Manual) (2-8) % Sodium (135-145) mmol/L Potassium (3.6-5.0) mmol/L Chloride (101-111) mmol/L Carbon Dioxide (21.0-31.0) mmol/L Anion Gap BUN (7-18) mg/dL Creatinine (0.6-1.3) mg/dL Est Cr Clr Drug Dosing mL/min Estimated GFR (MDRD) BUN/Creatinine Ratio Glucose (74-105) mg/dL POC Glucose 119 H (83-110) mg/dl Lactic Acid 3.4 H (0.5-2.2) mmol/L Calcium (8.4-10.2) mg/dl Magnesium (1.8-2.5) mg/dL Total Bilirubin (0.2-1.0) mg/dL AST (10-42) IU/L ALT (10-60) IU/L Alkaline Phosphatase (42-121) IU/L Troponin I (0.00-0.02) ng/ml Total Protein (6.7-8.2) g/dl Albumin (3.2-5.5) g/dl Globulin Albumin/Globulin Ratio Urine Color Dark yellow (YELLOW) Urine Appearance Clear (CLEAR) Urine pH 5.0 (5.0-9.0) Ur Specific [place] >= 1.030 (1.005-1.030) Urine Protein 100 H (NEGATIVE) Urine Glucose (UA) Negative (NEGATIVE) Urine Ketones Negative (NEGATIVE) Urine Occult Blood Trace-lysed H (NEGATIVE) Urine Nitrite Negative (NEGATIVE) Urine Bilirubin Small H (NEGATIVE) Urine Urobilinogen 1.0 (0.2-1.0) mg/dL Ur Leukocyte Esterase Negative (NEGATIVE) Urine RBC 5-10 H /HPF Urine WBC 0-5 (0-5/HPF) /HPF Ur Epithelial Cells Many H /HPF Urine Bacteria Few (0-FEW/HPF) /HPF Urine Mucus Many H /LPF 09/09/17 09/09/17 09/09/17 Range/Units 06:33 06:33 06:33 WBC 23.8 H (5.0-10.0) 10^3/uL RBC 4.20 (4.2-5.4) 10^6/uL Hgb 12.6 D (12.0-16.0) g/dL Hct 38.1 (37.0-47.0) % MCV 90.7 (80-100) fL MCH 30.0 (27.0-34.0) pg MCHC 33.1 (33.0-35.0) g/dL Plt Count 323 (150-450) 10^3/uL Neut % (Auto) 95.8 H (42.2-75.2) % Lymph % (Auto) 3.0 L (20.5-50.1) % [place] % (Auto) 1.1 L (2-8) % Eos % (Auto) 0.0 L (1.0-3.0) % Baso % (Auto) 0.1 (0.0-1.0) % Add Manual Diff Neutrophils % (Manual) (42-75) % Band Neutrophils % % Lymphocytes % (Manual) (20-50) % Monocytes % (Manual) (2-8) % Sodium 135 (135-145) mmol/L Potassium 3.6 (3.6-5.0) mmol/L Chloride 105 (101-111) mmol/L Carbon Dioxide 20.0 L (21.0-31.0) mmol/L Anion Gap 13.6 BUN 19 H (7-18) mg/dL Creatinine 0.9 (0.6-1.3) mg/dL Est Cr Clr Drug Dosing 50.23 mL/min Estimated GFR (MDRD) > 60 BUN/Creatinine Ratio 21.11 Glucose 219 H (74-105) mg/dL POC Glucose (83-110) mg/dl Lactic Acid 3.7 H (0.5-2.2) mmol/L Calcium 8.0 L (8.4-10.2) mg/dl Magnesium 1.4 L (1.8-2.5) mg/dL Total Bilirubin 0.8 (0.2-1.0) mg/dL AST 35 (10-42) IU/L ALT 21 (10-60) IU/L Alkaline Phosphatase 48 (42-121) IU/L Troponin I (0.00-0.02) ng/ml Total Protein 5.8 L (6.7-8.2) g/dl Albumin 3.0 L (3.2-5.5) g/dl Globulin 2.8 Albumin/Globulin Ratio 1.07 Urine Color (YELLOW) Urine Appearance (CLEAR) Urine pH (5.0-9.0) Ur Specific [place] (1.005-1.030) Urine Protein (NEGATIVE) Urine Glucose (UA) (NEGATIVE) Urine Ketones (NEGATIVE) Urine Occult Blood (NEGATIVE) Urine Nitrite (NEGATIVE) Urine Bilirubin (NEGATIVE) Urine Urobilinogen (0.2-1.0) mg/dL Ur Leukocyte Esterase (NEGATIVE) Urine RBC /HPF Urine WBC (0-5/HPF) /HPF Ur Epithelial Cells /HPF Urine Bacteria (0-FEW/HPF) /HPF Urine Mucus /LPF 09/09/17 Range/Units 07:58 WBC (5.0-10.0) 10^3/uL RBC (4.2-5.4) 10^6/uL Hgb (12.0-16.0) g/dL Hct (37.0-47.0) % MCV (80-100) fL MCH (27.0-34.0) pg MCHC (33.0-35.0) g/dL Plt Count (150-450) 10^3/uL Neut % (Auto) (42.2-75.2) % Lymph % (Auto) (20.5-50.1) % [place] % (Auto) (2-8) % Eos % (Auto) (1.0-3.0) % Baso % (Auto) (0.0-1.0) % Add Manual Diff Neutrophils % (Manual) (42-75) % Band Neutrophils % % Lymphocytes % (Manual) (20-50) % Monocytes % (Manual) (2-8) % Sodium (135-145) mmol/L Potassium (3.6-5.0) mmol/L Chloride (101-111) mmol/L Carbon Dioxide (21.0-31.0) mmol/L Anion Gap BUN (7-18) mg/dL Creatinine (0.6-1.3) mg/dL Est Cr Clr Drug Dosing mL/min Estimated GFR (MDRD) BUN/Creatinine Ratio Glucose (74-105) mg/dL POC Glucose 191 H (83-110) mg/dl Lactic Acid (0.5-2.2) mmol/L Calcium (8.4-10.2) mg/dl Magnesium (1.8-2.5) mg/dL Total Bilirubin (0.2-1.0) mg/dL AST (10-42) IU/L ALT (10-60) IU/L Alkaline Phosphatase (42-121) IU/L Troponin I (0.00-0.02) ng/ml Total Protein (6.7-8.2) g/dl Albumin (3.2-5.5) g/dl Globulin Albumin/Globulin Ratio Urine Color (YELLOW) Urine Appearance (CLEAR) Urine pH (5.0-9.0) Ur Specific [place] (1.005-1.030) Urine Protein (NEGATIVE) Urine Glucose (UA) (NEGATIVE) Urine Ketones (NEGATIVE) Urine Occult Blood (NEGATIVE) Urine Nitrite (NEGATIVE) Urine Bilirubin (NEGATIVE) Urine Urobilinogen (0.2-1.0) mg/dL Ur Leukocyte Esterase (NEGATIVE) Urine RBC /HPF Urine WBC (0-5/HPF) /HPF Ur Epithelial Cells /HPF Urine Bacteria (0-FEW/HPF) /HPF Urine Mucus /LPF [place] Results Last 24 Hours: Microbiology 09/08/17 22:05 Gram Stain - Final Sputum - Induced 09/08/17 18:08 Influenza Type A Antigen Screen - Final Nasal, Unspecified NEGATIVE INFLUENZA A VIRUS AG Influenza Type B Antigen Screen - Final NEGATIVE INFLUENZA B VIRUS AG Med Orders - Current: Current Medications Acetaminophen (Tylenol) 650 mg PO Q4H PRN PRN Reason: Pain (Mild 1-3)/fever Last Admin: 09/08/17 20:50 Dose: 650 mg Hydrocodone Bitart/Acetaminophen (Brinson 325-10 Mg) 1 tab PO Q6H PRN PRN Reason: Pain (moderate 4-6) Last Admin: 09/08/17 22:09 Dose: 1 tab Albuterol (Proventil Neb Soln) 2.5 mg NEB Q2H PRN PRN Reason: shortness of breath/wheezing Albuterol/Ipratropium (Duoneb 3.0-0.5 Mg/3 Ml) 3 ml NEB Q4H [facility] Last Admin: 09/09/17 09:54 Dose: 3 ml Aspirin (Aspirin) 81 mg PO DAILY [facility] Last Admin: 09/09/17 09:18 Dose: 81 mg Atorvastatin Calcium (Lipitor) 10 mg PO BEDTIME [facility] Last Admin: 09/08/17 21:05 Dose: 10 mg Ceftriaxone Sodium (Rocephin) 1 gm IVPUSH Q24H [facility] Last Admin: 09/08/17 22:10 Dose: 1 gm Enoxaparin Sodium (Lovenox) 40 mg SUBCUT DAILY [facility] Last Admin: 09/09/17 09:19 Dose: 40 mg Glimepiride (Amaryl) 1 mg PO DAILY [facility] Last Admin: 09/09/17 09:18 Dose: 1 mg Guaifenesin (Robitussin) 100 mg PO Q6H PRN PRN Reason: Cough Azithromycin 500 mg/ Sodium (Chloride) 250 mls @ 250 mls/hr IV Q24H [facility] Last Admin: 09/08/17 20:51 Dose: 250 mls/hr Magnesium Sulfate 2 gm/ Premix 50 mls @ 25 mls/hr IV Q2H [facility] Stop: 09/09/17 13:59 Insulin Aspart (Novolog) 0 unit SUBCUT QIDACANDBED [facility]; Protocol Last Admin: 09/09/17 09:17 Dose: 1 unit Magnesium Hydroxide (Milk Of Magnesia) 30 ml PO Q12H PRN PRN Reason: Constipation Methylprednisolone Sodium Succinate (Solu-Medrol) 125 mg IVPUSH Q12H [facility] Last Admin: 09/09/17 09:18 Dose: 125 mg Mometasone Furoate/Formoterol Fumar (Dulera 100-5 Mcg) 2 puff IH DAILY [facility] Last Admin: 09/09/17 09:19 Dose: 2 puff Morphine Sulfate (Morphine) 2 mg IVPUSH Q2H PRN PRN Reason: sever pain (7-10) Last Admin: 09/08/17 20:51 Dose: 2 mg Nicotine (Habitrol) 21 mg TRDERM DAILY [facility] Last Admin: 09/09/17 09:19 Dose: 21 mg Ondansetron HCl (Zofran) 4 mg IVPUSH Q6H PRN PRN Reason: Nausea/Vomiting Last Admin: 09/08/17 20:50 Dose: 4 mg Mucinex Fast-Max Cold-FluMucinex Fast-Max Cold-Flu 2 each PO Q4HR PRN PRN Reason: Congestion Polyethylene Glycol (Miralax) 17 gm PO DAILY PRN PRN Reason: Constipation Sodium Chloride (Saline Flush) 10 ml FLUSH ASDIRECTED PRN PRN Reason: Keep Vein Open Zolpidem Tartrate (Ambien) 5 mg PO BEDTIME PRN PRN Reason: Sleep Last Admin: 09/08/17 22:08 Dose: 5 mg Discontinued Medications Hydrocodone Bitart/Acetaminophen (Brinson 325-10 Mg) 0.5 tab PO Q4H PRN PRN Reason: Pain (moderate 4-6) Albuterol/Ipratropium (Duoneb 3.0-0.5 Mg/3 Ml) 3 ml NEB Q6H [facility] Last Admin: 09/08/17 22:46 Dose: Not Given Sodium Chloride (Normal Saline) 1,000 mls @ 999 mls/hr IV ASDIRECTED [facility] Last Admin: 09/08/17 21:24 Dose: 999 mls/hr Ceftriaxone Sodium 1 mg/ (Sodium Chloride) 100 mls @ 200 mls/hr IV Q24H [facility] Last Admin: 09/08/17 22:46 Dose: Not Given Sodium Chloride (Normal Saline) 1,000 mls @ 150 mls/hr IV ASDIRECTED [facility] Stop: 09/09/17 02:39 Last Admin: 09/08/17 22:36 Dose: 150 mls/hr Sodium Chloride (Normal Saline) 1,000 mls @ 999 mls/hr IV .BOLUS [facility] Last Admin: 09/08/17 21:26 Dose: 999 mls/hr Methylprednisolone Sodium Succinate 1,000 mg/ Sodium Chloride 108 mls @ 100 mls /hr IV Q12H [facility] Last Admin: 09/08/17 22:46 Dose: Not Given Metformin HCl (Glucophage) 500 mg PO BIDMEALS KATHERIN Mometasone Furoate/Formoterol Fumar (Dulera 100-5 Mcg) 2 puff IH DAILYRT KATHERIN - Exam General: Alert, Oriented, Cooperative, No Acute Distress, Other (She looks much better). No: Moderate Distress, Severe Distress, Sedated, Lethargic HEENT: Pupils Equal, Pupils Reactive, EOMI, Mucous Membr. Moist/[place] Neck: Supple, Trachea Midline, No JVD Lungs: Decreased Breath Sounds (Improved from yesterday), Rhonchi, Wheezing, Other (history muscle usage. Overall lung exam markedly improved from yesterday) . No: Crackles, Rales Cardiovascular: Regular Rate, Regular Rhythm Back Exam: Normal Inspection, Full Range of Motion Extremities: Normal Inspection, Normal Range of Motion, Non-Tender, No Pedal Edema, Normal Capillary Refill Skin: Warm, Dry, Other (Still having tenting sign but less than yesterday) Neurological: No New Focal Deficit Psy/Mental Status: Alert, Normal Affect, Normal Mood - Problem List & Annotations (1) COPD exacerbation SNOMED Code(s): 254003529 Code(s): J44.1 - CHRONIC OBSTRUCTIVE PULMONARY DISEASE W (ACUTE) EXACERBATION Status: Acute Priority: High Current Visit: Yes (2) Diabetes mellitus SNOMED Code(s): 29043126 Code(s): E11.9 - TYPE 2 DIABETES MELLITUS WITHOUT COMPLICATIONS Status: Chronic Current Visit: Yes (3) Osteoarthritis of knee SNOMED Code(s): 910344462 Code(s): M17.9 - OSTEOARTHRITIS OF KNEE, UNSPECIFIED Status: Chronic Current Visit: No (4) Pneumonia SNOMED Code(s): 150694930 Code(s): J18.9 - PNEUMONIA, UNSPECIFIED ORGANISM Status: Acute Priority: High Current Visit: No Qualifiers: Pneumonia type: due to unspecified organism Laterality: bilateral Lung location: unspecified part of lung Qualified Code(s): J18.9 - Pneumonia, unspecified organism (5) Sepsis SNOMED Code(s): 77209915 Code(s): A41.9 - SEPSIS, UNSPECIFIED ORGANISM Status: Acute Priority: High Current Visit: No Qualifiers: Sepsis type: sepsis due to unspecified organism Qualified Code(s): A41.9 - Sepsis, unspecified organism (6) Lactic acidosis SNOMED Code(s): 45403950 Code(s): E87.2 - ACIDOSIS Status: Acute Current Visit: Yes - Problem List Review Problem List Initiated/Reviewed/Updated: Yes - My Orders Last 24 Hours: My Active Orders 09/08/17 19:58 Patient Status [ADT] Routine Height and Weight [RC] 0600 Oxygen Therapy [RC] PRN Up ad Paula [RC] ASDIRECTED VTE/DVT Education [RC] PER UNIT ROUTINE Vital Signs [RC] Q4H Acetaminophen [Tylenol] 650 mg PO Q4H PRN Albuterol [Proventil Neb Soln] 2.5 mg NEB Q2H PRN Magnesium Hydroxide [Milk of Magnesia] 30 ml PO Q12H PRN Ondansetron [Zofran] 4 mg IVPUSH Q6H PRN Polyethylene Glycol 3350 [MiraLAX] 17 gm PO DAILY PRN Zolpidem [Ambien] 5 mg PO BEDTIME PRN Resuscitation Status Routine 09/08/17 19:59 Notify Provider Vital Signs [RC] ASDIRECTED Pulse Oximetry [RC] PRN 09/08/17 20:00 Azithromycin [Zithromax] 500 mg Sodium Chloride 0.9% [Normal Saline] 250 ml IV Q24H 09/08/17 20:01 RT Aerosol Therapy [RC] ASDIRECTED 09/08/17 20:03 Patient's Own Medication [Ptom] 2 each PO Q4HR PRN 09/08/17 20:17 Acetaminophen/HYDROcodone [Brinson 325-10 MG] 1 tab PO Q6H PRN Morphine 2 mg IVPUSH Q2H PRN 09/08/17 20:18 Flutter Valve Therapy [RT Chest Physiotherapy] [RC] ASDIRECTED RT Incentive Spirometry [RC] ASDIRECTED 09/08/17 20:21 Respiratory Care Assess and Treatment [CONS] Routine 09/08/17 20:33 Intake and Output Strict [RC] QSHIFT 09/08/17 20:34 Sodium Chloride 0.9% [Saline Flush] 10 ml FLUSH ASDIRECTED PRN Peripheral IV Insertion Adult [OM.PC] Routine 09/08/17 20:35 Peripheral IV Care [RC] 09,21 09/08/17 21:00 Albuterol/Ipratropium [DuoNeb 3.0-0.5 MG/3 ML] 3 ml NEB Q4H Insulin Aspart [NovoLOG] See Protocol SUBCUT QIDACANDBED Nicotine [Habitrol] 21 mg TRDERM DAILY atorvaSTATin [Lipitor] 10 mg PO BEDTIME cefTRIAXone [Rocephin] 1 gm IVPUSH Q24H methylPREDNISolone Sod Succ [Solu-MEDROL] 125 mg IVPUSH Q12H 09/08/17 21:45 Blood Glucose Check, Bedside [RC] QIDACANDBED 09/08/17 22:05 CULTURE SPUTUM + SMEAR [RM] Stat 09/08/17 22:52 guaiFENesin [Robitussin] 100 mg PO Q6H PRN 09/09/17 09:00 Aspirin 81 mg PO DAILY Enoxaparin [Lovenox] 40 mg SUBCUT DAILY Glimepiride [Amaryl] 1 mg PO DAILY Mometasone/Formoterol [Dulera 100-5 MCG] 2 puff IH DAILY 09/09/17 10:00 Magnesium Sulfate/Water [Magnesium Sulfate 2 GM in Water 50 ML] 2 gm Premix Bag 1 bag IV Q2H 09/09/17 Breakfast Consistent Carbohydrate Diet [DIET] 09/10/17 05:11 BASIC METABOLIC PANEL,BMP [CHEM] AM CBC WITH AUTO DIFF [HEME] AM 09/10/17 06:00 Chest 2V [CR] Timed - Plan Plan:: Assessment and plan 72-year-old female with the above past medical history including but not limited to COPD and recurrent pneumonia present to the emergency room with sepsis and pneumonia and lactic acidosis. #Sepsis 2 L of normal saline as a bolus then 1 L at 150 mL per hour -Continue Rocephin and azithromycin Strict I&O's and daily weight 2 IV accesses #Committee acquired pneumonia -Continue Rocephin and azithromycin -DuoNeb every 4 hours Flutter #Lactic acidosis -Lactic acid is still elevated She received 3 L of normal saline since admission. -We'll give another 2 L of normal saline at 1 75 mL per hour #COPD exacerbation -DuoNeb every 4 hours. -Continue Solu Medrol 125 mg every 12 hours Continue home fluticasone/salmeterol Albuterol every 2 hours as needed #Hypomagnesemia -Magnesium level I.6 -Magnesium sulfate 4 mg IV infusion #Pleurisy Tylenol, hydrocodone, morphine as needed for pain #Diabetes mellitus type 2 Continue glimepiride -Hold metformin until lactic acidosis is resolved Sliding-scale insulin, NovoLog, low-dose regimen #Tobacco abuse Patient smokes one pack and a half a day. Patient was advised to quit smoking and counseled with primary care provider. Nicotine patch ordered Lovenox for DVT prophylaxis Full code for CODE STATUS Plan of care was discussed with patient who verbalized understanding agreed with the plan
[2017-09-09] MEDS: Magnesium Sulfate/Water 2 GM in Premix Bag 1 BAG IV SCH ×2 (10:47→12:45)
[2017-09-09] MEDS: Sodium Chloride 0.9% 1,000 ML IV SCH ×2 (11:43→16:55)
--- NOTE | 2017-09-09 16:04 | EKG ---
09/08/2017 - HAWA MEADE I reviewed the EKG and agree with the machine's reading. [facility] /[id number]
[2017-09-09] MEDS: cefTRIAXone 1 GM Vial IVPUSH SCH (20:28)
[2017-09-09] MEDS: Azithromycin 500 MG in Sodium Chloride 0.9% 250 ML IV SCH (20:30)
[2017-09-09] MEDS: atorvaSTATin 10 MG Tab PO SCH (20:30)
[2017-09-09] MEDS: Zolpidem 5 MG Tab PO PRN (23:19)
[2017-09-09] MEDS: Acetaminophen 325 MG Tab PO PRN (23:23)
[2017-09-10] MEDS: Albuterol/Ipratropium 3.0-0.5 MG/3 ML Neb Soln NEB SCH ×7 (01:41→22:37)
[2017-09-10 06:50] LABS: CHLORIDE,CL 105 mmol/L (101-111); SODIUM,NA 136 mmol/L (135-145)
[2017-09-10] MEDS: Formoterol/Mometasone 100-5 MCG 8.8 GM Inhaler IH SCH (08:18)
[2017-09-10] MEDS: Insulin Aspart 100 Units/ML 3 ML Pen SUBCUT SCH ×4 (08:19→21:35)
[2017-09-10] MEDS: Glimepiride 2 MG Tab PO SCH (08:20)
[2017-09-10] MEDS: Aspirin 81 MG Tab.Chew PO SCH (08:20)
[2017-09-10] MEDS: methylPREDNISolone Sodium Succinate 125 MG/2 ML SDV IVPUSH SCH ×2 (08:20→21:25)
[2017-09-10] MEDS: Enoxaparin 40 MG/0.4 ML Syringe SUBCUT SCH (08:20)
[2017-09-10] MEDS: Nicotine 21 MG/24 Hr Patch TRDERM SCH (08:20)
--- NOTE | 2017-09-10 10:13 | PCM.PN ---
- General Info Date of Service: 09/10/17 Admission Dx/Problem (Free Text): Admission Diagnosis/Problem Admission Diagnosis/Problem Pneumonia Subjective Update: Patient stated that she is feeling much better today. Her shortness breath, cough, wheezing, rattling are much better. She still having dry mouth . She has been urinating but still less than normal. She denies headache, chest pain, nausea, vomiting, fever, chills, abdominal pain, diarrhea, any other symptoms or concerns - Patient Data Vitals - Most Recent: Last Vital Signs Temp 37.1 C 09/10/17 07:31 Pulse 100 09/10/17 09:18 Resp 20 09/10/17 07:31 BP 117/61 09/10/17 07:31 Pulse Ox 100 09/10/17 07:31 Weight - Most Recent: 79.56 kg I&O - Last 24 Hours: Intake & Output 09/09/17 09/10/17 09/10/17 22:59 06:59 14:59 Intake Total 2091 1152 250 Output Total 400 150 300 Balance 1691 1002 -50 Lab Results Last 24 Hours: Laboratory Results - last 24 hr 09/09/17 09/09/17 09/09/17 Range/Units 11:16 17:01 21:08 WBC (5.0-10.0) 10^3/uL RBC (4.2-5.4) 10^6/uL Hgb (12.0-16.0) g/dL Hct (37.0-47.0) % MCV (80-100) fL MCH (27.0-34.0) pg MCHC (33.0-35.0) g/dL Plt Count (150-450) 10^3/uL Neut % (Auto) (42.2-75.2) % Lymph % (Auto) (20.5-50.1) % [place] % (Auto) (2-8) % Eos % (Auto) (1.0-3.0) % Baso % (Auto) (0.0-1.0) % Sodium (135-145) mmol/L Potassium (3.6-5.0) mmol/L Chloride (101-111) mmol/L Carbon Dioxide (21.0-31.0) mmol/L Anion Gap BUN (7-18) mg/dL Creatinine (0.6-1.3) mg/dL Est Cr Clr Drug Dosing mL/min Estimated GFR (MDRD) Glucose (74-105) mg/dL POC Glucose 213 H 265 H 162 H (83-110) mg/dl Lactic Acid (0.5-2.2) mmol/L Calcium (8.4-10.2) mg/dl 09/10/17 09/10/17 09/10/17 Range/Units 06:08 06:08 06:08 WBC 21.1 H (5.0-10.0) 10^3/uL RBC 4.06 L (4.2-5.4) 10^6/uL Hgb 12.3 (12.0-16.0) g/dL Hct 36.9 L (37.0-47.0) % MCV 90.9 (80-100) fL MCH 30.3 (27.0-34.0) pg MCHC 33.3 (33.0-35.0) g/dL Plt Count 336 (150-450) 10^3/uL Neut % (Auto) 93.2 H (42.2-75.2) % Lymph % (Auto) 4.6 L (20.5-50.1) % [place] % (Auto) 2.1 (2-8) % Eos % (Auto) 0.0 L (1.0-3.0) % Baso % (Auto) 0.1 (0.0-1.0) % Sodium 136 (135-145) mmol/L Potassium 3.6 (3.6-5.0) mmol/L Chloride 105 (101-111) mmol/L Carbon Dioxide 23.0 (21.0-31.0) mmol/L Anion Gap 11.6 BUN 18 (7-18) mg/dL Creatinine 0.8 (0.6-1.3) mg/dL Est Cr Clr Drug Dosing 56.50 mL/min Estimated GFR (MDRD) > 60 Glucose 211 H (74-105) mg/dL POC Glucose (83-110) mg/dl Lactic Acid 1.8 (0.5-2.2) mmol/L Calcium 8.5 (8.4-10.2) mg/dl 09/10/17 Range/Units 08:00 WBC (5.0-10.0) 10^3/uL RBC (4.2-5.4) 10^6/uL Hgb (12.0-16.0) g/dL Hct (37.0-47.0) % MCV (80-100) fL MCH (27.0-34.0) pg MCHC (33.0-35.0) g/dL Plt Count (150-450) 10^3/uL Neut % (Auto) (42.2-75.2) % Lymph % (Auto) (20.5-50.1) % [place] % (Auto) (2-8) % Eos % (Auto) (1.0-3.0) % Baso % (Auto) (0.0-1.0) % Sodium (135-145) mmol/L Potassium (3.6-5.0) mmol/L Chloride (101-111) mmol/L Carbon Dioxide (21.0-31.0) mmol/L Anion Gap BUN (7-18) mg/dL Creatinine (0.6-1.3) mg/dL Est Cr Clr Drug Dosing mL/min Estimated GFR (MDRD) Glucose (74-105) mg/dL POC Glucose 199 H (83-110) mg/dl Lactic Acid (0.5-2.2) mmol/L Calcium (8.4-10.2) mg/dl [place] Results Last 24 Hours: Microbiology 09/08/17 18:34 Aerobic Blood Culture - Preliminary Blood - Venous - Lab Draw NO GROWTH AFTER 1 DAY Anaerobic Blood Culture - Preliminary NO GROWTH AFTER 1 DAY 09/08/17 18:30 Aerobic Blood Culture - Preliminary Blood - Venous NO GROWTH AFTER 1 DAY Anaerobic Blood Culture - Preliminary NO GROWTH AFTER 1 DAY Med Orders - Current: Current Medications Acetaminophen (Tylenol) 650 mg PO Q4H PRN PRN Reason: Pain (Mild 1-3)/fever Last Admin: 09/09/17 23:23 Dose: 650 mg Hydrocodone Bitart/Acetaminophen ([place] 325-10 Mg) 1 tab PO Q6H PRN PRN Reason: Pain (moderate 4-6) Last Admin: 09/08/17 22:09 Dose: 1 tab Albuterol (Proventil Neb Soln) 2.5 mg NEB Q2H PRN PRN Reason: shortness of breath/wheezing Albuterol/Ipratropium (Duoneb 3.0-0.5 Mg/3 Ml) 3 ml NEB Q4HRRT [facility] Aspirin (Aspirin) 81 mg PO DAILY [facility] Last Admin: 09/10/17 08:20 Dose: 81 mg Atorvastatin Calcium (Lipitor) 10 mg PO BEDTIME [facility] Last Admin: 09/09/17 20:30 Dose: 10 mg Ceftriaxone Sodium (Rocephin) 1 gm IVPUSH Q24H [facility] Last Admin: 09/09/17 20:28 Dose: 1 gm Enoxaparin Sodium (Lovenox) 40 mg SUBCUT DAILY [facility] Last Admin: 09/10/17 08:20 Dose: 40 mg Glimepiride (Amaryl) 1 mg PO DAILY [facility] Last Admin: 09/10/17 08:20 Dose: 1 mg Guaifenesin (Robitussin) 100 mg PO Q6H PRN PRN Reason: Cough Azithromycin 500 mg/ Sodium (Chloride) 250 mls @ 250 mls/hr IV Q24H [facility] Last Admin: 09/09/17 20:30 Dose: 250 mls/hr Insulin Aspart (Novolog) 0 unit SUBCUT QIDACANDBED [facility]; Protocol Last Admin: 09/10/17 08:19 Dose: 1 unit Magnesium Hydroxide (Milk Of Magnesia) 30 ml PO Q12H PRN PRN Reason: Constipation Methylprednisolone Sodium Succinate (Solu-Medrol) 125 mg IVPUSH Q12H [facility] Last Admin: 09/10/17 08:20 Dose: 125 mg Mometasone Furoate/Formoterol Fumar (Dulera 100-5 Mcg) 2 puff IH DAILY [facility] Last Admin: 09/10/17 08:18 Dose: 2 puff Morphine Sulfate (Morphine) 2 mg IVPUSH Q2H PRN PRN Reason: sever pain (7-10) Last Admin: 09/08/17 20:51 Dose: 2 mg Nicotine (Habitrol) 21 mg TRDERM DAILY [facility] Last Admin: 09/10/17 08:20 Dose: 21 mg Ondansetron HCl (Zofran) 4 mg IVPUSH Q6H PRN PRN Reason: Nausea/Vomiting Last Admin: 09/08/17 20:50 Dose: 4 mg Mucinex Fast-Max Cold-FluMucinex Fast-Max Cold-Flu 2 each PO Q4HR PRN PRN Reason: Congestion Polyethylene Glycol (Miralax) 17 gm PO DAILY PRN PRN Reason: Constipation Sodium Chloride (Saline Flush) 10 ml FLUSH ASDIRECTED PRN PRN Reason: Keep Vein Open Zolpidem Tartrate (Ambien) 5 mg PO BEDTIME PRN PRN Reason: Sleep Last Admin: 09/09/17 23:19 Dose: 5 mg Discontinued Medications Hydrocodone Bitart/Acetaminophen ([place] 325-10 Mg) 0.5 tab PO Q4H PRN PRN Reason: Pain (moderate 4-6) Albuterol/Ipratropium (Duoneb 3.0-0.5 Mg/3 Ml) 3 ml NEB Q6H [facility] Last Admin: 09/08/17 22:46 Dose: Not Given Albuterol/Ipratropium (Duoneb 3.0-0.5 Mg/3 Ml) 3 ml NEB Q4H [facility] Last Admin: 09/10/17 09:17 Dose: 3 ml Sodium Chloride (Normal Saline) 1,000 mls @ 999 mls/hr IV ASDIRECTED [facility] Last Admin: 09/08/17 21:24 Dose: 999 mls/hr Ceftriaxone Sodium 1 mg/ (Sodium Chloride) 100 mls @ 200 mls/hr IV Q24H [facility] Last Admin: 09/08/17 22:46 Dose: Not Given Sodium Chloride (Normal Saline) 1,000 mls @ 150 mls/hr IV ASDIRECTED [facility] Stop: 09/09/17 02:39 Last Admin: 09/08/17 22:36 Dose: 150 mls/hr Sodium Chloride (Normal Saline) 1,000 mls @ 999 mls/hr IV .BOLUS [facility] Last Admin: 09/08/17 21:26 Dose: 999 mls/hr Methylprednisolone Sodium Succinate 1,000 mg/ Sodium Chloride 108 mls @ 100 mls /hr IV Q12H [facility] Last Admin: 09/08/17 22:46 Dose: Not Given Magnesium Sulfate 2 gm/ Premix 50 mls @ 25 mls/hr IV Q2H [facility] Stop: 09/09/17 13:59 Last Admin: 09/09/17 12:45 Dose: 25 mls/hr Sodium Chloride (Normal Saline) 1,000 mls @ 175 mls/hr IV ASDIRECTED [facility] Stop: 09/09/17 22:30 Last Admin: 09/09/17 16:55 Dose: 175 mls/hr Metformin HCl (Glucophage) 500 mg PO BIDMEALS [facility] Mometasone Furoate/Formoterol Fumar (Dulera 100-5 Mcg) 2 puff IH DAILYRT [facility] - Exam General: Alert, Oriented, Cooperative. No: No Acute Distress, Mild Distress, Moderate Distress, Severe Distress, Sedated, Lethargic HEENT: Pupils Equal, Pupils Reactive, EOMI, Mucous Membr. Moist/[place] Neck: Supple, Trachea Midline, No JVD Lungs: Normal Respiratory Effort, Decreased Breath Sounds. No: Crackles, Rales , Rhonchi, Rub, Stridor, Wheezing Cardiovascular: Regular Rate, Tachycardia GI/Abdominal Exam: Normal Bowel Sounds, Soft, Non-Tender, No Organomegaly, No Distention (Female) Exam: Deferred Back Exam: Normal Inspection, Full Range of Motion. No: CVA Tenderness (L), CVA Tenderness (R) Extremities: Normal Inspection, Normal Range of Motion, Non-Tender, No Pedal Edema, Normal Capillary Refill Skin: Warm, Intact Neurological: No New Focal Deficit Psy/Mental Status: Alert, Normal Affect, Normal Mood - Problem List & Annotations (1) COPD exacerbation SNOMED Code(s): 074720717 Code(s): J44.1 - CHRONIC OBSTRUCTIVE PULMONARY DISEASE W (ACUTE) EXACERBATION Status: Acute Priority: High Current Visit: Yes (2) Diabetes mellitus SNOMED Code(s): 99655299 Code(s): E11.9 - TYPE 2 DIABETES MELLITUS WITHOUT COMPLICATIONS Status: Chronic Current Visit: Yes (3) Osteoarthritis of knee SNOMED Code(s): 684248154 Code(s): M17.9 - OSTEOARTHRITIS OF KNEE, UNSPECIFIED Status: Chronic Current Visit: No (4) Pneumonia SNOMED Code(s): 198817807 Code(s): J18.9 - PNEUMONIA, UNSPECIFIED ORGANISM Status: Acute Priority: High Current Visit: No Qualifiers: Pneumonia type: due to unspecified organism Laterality: bilateral Lung location: unspecified part of lung Qualified Code(s): J18.9 - Pneumonia, unspecified organism (5) Sepsis SNOMED Code(s): 05163115 Code(s): A41.9 - SEPSIS, UNSPECIFIED ORGANISM Status: Acute Priority: High Current Visit: No Qualifiers: Sepsis type: sepsis due to unspecified organism Qualified Code(s): A41.9 - Sepsis, unspecified organism (6) Lactic acidosis SNOMED Code(s): 62739371 Code(s): E87.2 - ACIDOSIS Status: Acute Current Visit: Yes - Problem List Review Problem List Initiated/Reviewed/Updated: Yes - My Orders Last 24 Hours: My Active Orders 09/10/17 11:00 Albuterol/Ipratropium [DuoNeb 3.0-0.5 MG/3 ML] 3 ml NEB Q4HRRT 09/11/17 05:11 BASIC METABOLIC PANEL,BMP [CHEM] AM CBC WITH AUTO DIFF [HEME] AM - Plan Plan:: Assessment and plan 72-year-old female with the above past medical history including but not limited to COPD and recurrent pneumonia present to the emergency room with sepsis and pneumonia and lactic acidosis. #Sepsis 2 L of normal saline as a bolus then 1 L at 150 mL per hour -Continue Rocephin and azithromycin Strict I&O's and daily weight 2 IV accesses #Community acquired pneumonia -Continue Rocephin and azithromycin -DuoNeb every 4 hours Flutter #Lactic acidosis -Lactic acid level is normal today She received 3 L of normal saline since on admission, then another 2 L of normal saline yesterday as her lactic acid was still elevated. #COPD exacerbation -DuoNeb every 4 hours. -Continue Solu Medrol 125 mg every 12 hours Continue home fluticasone/salmeterol Albuterol every 2 hours as needed #Hypomagnesemia -Magnesium level I.6 -Magnesium sulfate 4 mg IV infusion #Pleurisy Tylenol, hydrocodone, morphine as needed for pain #Diabetes mellitus type 2 Continue glimepiride -Hold metformin until lactic acidosis is resolved. May restart tomorrow Sliding-scale insulin, NovoLog, low-dose regimen #Tobacco abuse Patient smokes one pack and a half a day. Patient was advised to quit smoking and counseled with primary care provider. Nicotine patch ordered Lovenox for DVT prophylaxis Full code for CODE STATUS Plan of care was discussed with patient who verbalized understanding agreed with the plan
[2017-09-10] MEDS ORDERED: Pantoprazole 40 MG Tab.CR PO SCH (10:22)
[2017-09-10] MEDS: Sodium Chloride 0.9% 10 ML Syringe FLUSH PRN ×2 (19:36→21:23)
[2017-09-10] MEDS: Azithromycin 500 MG in Sodium Chloride 0.9% 250 ML IV SCH (19:37)
[2017-09-10] MEDS: cefTRIAXone 1 GM Vial IVPUSH SCH (21:29)
[2017-09-10] MEDS: atorvaSTATin 10 MG Tab PO SCH (21:35)
[2017-09-10] MEDS: Zolpidem 5 MG Tab PO PRN (21:37)
[2017-09-11] MEDS: Albuterol/Ipratropium 3.0-0.5 MG/3 ML Neb Soln NEB SCH ×3 (04:17→11:40)
[2017-09-11 07:02] LABS: CHLORIDE,CL 102 mmol/L (101-111); SODIUM,NA 136 mmol/L (135-145)
[2017-09-11 07:41] VITALS: BP 140/53
[2017-09-11] MEDS: Insulin Aspart 100 Units/ML 3 ML Pen SUBCUT SCH ×2 (08:30→13:02)
[2017-09-11] MEDS: Aspirin 81 MG Tab.Chew PO SCH (08:31)
[2017-09-11] MEDS: Glimepiride 2 MG Tab PO SCH (08:31)
[2017-09-11] MEDS: Nicotine 21 MG/24 Hr Patch TRDERM SCH (08:32)
[2017-09-11] MEDS: Formoterol/Mometasone 100-5 MCG 8.8 GM Inhaler IH SCH (08:32)
[2017-09-11] MEDS: methylPREDNISolone Sodium Succinate 125 MG/2 ML SDV IVPUSH SCH (08:33)
[2017-09-11] MEDS: Sodium Chloride 0.9% 10 ML Syringe FLUSH PRN (08:33)
[2017-09-11] MEDS: Enoxaparin 40 MG/0.4 ML Syringe SUBCUT SCH (08:33)
--- NOTE | 2017-09-11 09:51 | PCM.DCSUM1 ---
Discharge Summary - Hospital Course Free Text/Narrative:: 72-year-old female with h/o COPD and recurrent pneumonia presented to the emergency room with sepsis and pneumonia and lactic acidosis. #Sepsis Treated with IV fluids Treated pneumonia Resolved #Community acquired pneumonia Was treated with Rocephin and azithromycin Will continue oral antibiotic after discharge #Acute COPD exacerbation Treated with IV steroids and nebulizers Significantly improved Continue home Advair Albuterol every 2 hours as needed #Diabetes mellitus type 2 Continue glimepiride -Resume metformin - Discharge Data Discharge Date: 09/11/17 Discharge Disposition: Home, Self-Care 01 Condition: Good - Patient Summary/Data Consults: Consultations 09/08/17 20:21 Respiratory Care Assess and Treatment [CONS] Routine - Patient Instructions Diet: Heart Healthy Diet Activity: As Tolerated - Discharge Plan Prescriptions/Med Rec: Albuterol [IJD: Ventolin HFA] 2 puff INH Q4H PRN #18 gm PRN Reason: sob Amoxicillin/Potassium Clav [Augmentin 500-125 Tablet] 1 each PO TID #15 tablet predniSONE See Taper PO .TAPER #30 tab Home Medications: Home Meds Aspirin 81 mg PO DAILY 12/26/14 [History] Celecoxib 200 mg PO DAILY 12/26/14 [History] Glimepiride 1 mg PO DAILY 12/26/14 [History] atorvaSTATin [Lipitor] 10 mg PO BEDTIME 12/26/14 [History] metFORMIN [Glucophage] 500 mg PO BIDMEALS 12/26/14 [History] Fluticasone/Salmeterol [Advair Diskus 100-50] 1 puff INH DAILY 02/22/17 [History ] Phenylephrine/Dm/Acetaminop/Gg [Mucinex Fast-Max Cold-Flu Cplt] 2 caplet PO Q4HR PRN 09/08/17 [History] traMADol [Ultram] 50 mg PO Q6H PRN 09/08/17 [History] Albuterol [IJD: Ventolin HFA] 2 puff INH Q4H PRN #18 gm 09/11/17 [Rx] Amoxicillin/Potassium Clav [Augmentin 500-125 Tablet] 1 each PO TID #15 tablet 09/11/17 [Rx] predniSONE See Taper PO .TAPER #30 tab 09/11/17 [Rx] Referrals: Hubert Krause MD [Primary Care Provider] - (in 3-4 days) - Discharge Summary/Plan Comment DC Time >30 min.: No - General Info Date of Service: 09/11/17 Functional Status: Reports: Pain Controlled - Review of Systems General: Denies: Fever Pulmonary: Denies: Shortness of Breath Cardiovascular: Denies: Chest Pain Neurological: Denies: Confusion - Patient Data Vitals - Most Recent: Last Vital Signs Temp 36.8 C 09/11/17 07:35 Pulse 94 09/11/17 08:01 Resp 18 09/11/17 07:35 BP 140/53 L 09/11/17 07:35 Pulse Ox 97 09/11/17 07:35 Weight - Most Recent: 80.014 kg I&O - Last 24 hours: Intake & Output 09/10/17 09/11/17 09/11/17 22:59 06:59 14:59 Intake Total 1200 200 Output Total 900 1300 Balance 300 -1100 Lab Results - Last 24 hrs: Laboratory Results - last 24 hr 09/10/17 09/10/17 09/10/17 Range/Units 10:57 17:01 21:10 WBC (5.0-10.0) 10^3/uL RBC (4.2-5.4) 10^6/uL Hgb (12.0-16.0) g/dL Hct (37.0-47.0) % MCV (80-100) fL MCH (27.0-34.0) pg MCHC (33.0-35.0) g/dL Plt Count (150-450) 10^3/uL Neut % (Auto) (42.2-75.2) % Lymph % (Auto) (20.5-50.1) % [place] % (Auto) (2-8) % Eos % (Auto) (1.0-3.0) % Baso % (Auto) (0.0-1.0) % Sodium (135-145) mmol/L Potassium (3.6-5.0) mmol/L Chloride (101-111) mmol/L Carbon Dioxide (21.0-31.0) mmol/L Anion Gap BUN (7-18) mg/dL Creatinine (0.6-1.3) mg/dL Est Cr Clr Drug Dosing mL/min Estimated GFR (MDRD) Glucose (74-105) mg/dL POC Glucose 214 H 246 H 255 H (83-110) mg/dl Lactic Acid (0.5-2.2) mmol/L Calcium (8.4-10.2) mg/dl Magnesium (1.8-2.5) mg/dL 09/11/17 09/11/17 09/11/17 Range/Units 06:20 06:20 06:20 WBC 12.5 H (5.0-10.0) 10^3/uL RBC 4.02 L (4.2-5.4) 10^6/uL Hgb 12.0 (12.0-16.0) g/dL Hct 36.3 L (37.0-47.0) % MCV 90.3 (80-100) fL MCH 29.9 (27.0-34.0) pg MCHC 33.1 (33.0-35.0) g/dL Plt Count 355 (150-450) 10^3/uL Neut % (Auto) 91.3 H (42.2-75.2) % Lymph % (Auto) 6.4 L (20.5-50.1) % [place] % (Auto) 2.2 (2-8) % Eos % (Auto) 0.0 L (1.0-3.0) % Baso % (Auto) 0.1 (0.0-1.0) % Sodium 136 (135-145) mmol/L Potassium 3.7 (3.6-5.0) mmol/L Chloride 102 (101-111) mmol/L Carbon Dioxide 25.0 (21.0-31.0) mmol/L Anion Gap 12.7 BUN 15 (7-18) mg/dL Creatinine 0.7 (0.6-1.3) mg/dL Est Cr Clr Drug Dosing 64.58 mL/min Estimated GFR (MDRD) > 60 Glucose 214 H (74-105) mg/dL POC Glucose (83-110) mg/dl Lactic Acid 1.0 (0.5-2.2) mmol/L Calcium 8.5 (8.4-10.2) mg/dl Magnesium 1.8 (1.8-2.5) mg/dL 09/11/17 Range/Units 07:53 WBC (5.0-10.0) 10^3/uL RBC (4.2-5.4) 10^6/uL Hgb (12.0-16.0) g/dL Hct (37.0-47.0) % MCV (80-100) fL MCH (27.0-34.0) pg MCHC (33.0-35.0) g/dL Plt Count (150-450) 10^3/uL Neut % (Auto) (42.2-75.2) % Lymph % (Auto) (20.5-50.1) % [place] % (Auto) (2-8) % Eos % (Auto) (1.0-3.0) % Baso % (Auto) (0.0-1.0) % Sodium (135-145) mmol/L Potassium (3.6-5.0) mmol/L Chloride (101-111) mmol/L Carbon Dioxide (21.0-31.0) mmol/L Anion Gap BUN (7-18) mg/dL Creatinine (0.6-1.3) mg/dL Est Cr Clr Drug Dosing mL/min Estimated GFR (MDRD) Glucose (74-105) mg/dL POC Glucose 201 H (83-110) mg/dl Lactic Acid (0.5-2.2) mmol/L Calcium (8.4-10.2) mg/dl Magnesium (1.8-2.5) mg/dL FREDDY Results - Last 24 hrs: Microbiology 09/08/17 18:34 Aerobic Blood Culture - Preliminary Blood - Venous - Lab Draw NO GROWTH AFTER 2 DAYS Anaerobic Blood Culture - Preliminary NO GROWTH AFTER 2 DAYS 09/08/17 18:30 Aerobic Blood Culture - Preliminary Blood - Venous NO GROWTH AFTER 2 DAYS Anaerobic Blood Culture - Preliminary NO GROWTH AFTER 2 DAYS Med Orders - Current: Current Medications Acetaminophen (Tylenol) 650 mg PO Q4H PRN PRN Reason: Pain (Mild 1-3)/fever Last Admin: 09/09/17 23:23 Dose: 650 mg Hydrocodone Bitart/Acetaminophen ([place] 325-10 Mg) 1 tab PO Q6H PRN PRN Reason: Pain (moderate 4-6) Last Admin: 09/08/17 22:09 Dose: 1 tab Albuterol (Proventil Neb Soln) 2.5 mg NEB Q2H PRN PRN Reason: shortness of breath/wheezing Albuterol/Ipratropium (Duoneb 3.0-0.5 Mg/3 Ml) 3 ml NEB Q4HRRT [facility] Last Admin: 09/11/17 08:00 Dose: 3 ml Aspirin (Aspirin) 81 mg PO DAILY [facility] Last Admin: 09/11/17 08:31 Dose: 81 mg Atorvastatin Calcium (Lipitor) 10 mg PO BEDTIME [facility] Last Admin: 09/10/17 21:35 Dose: 10 mg Ceftriaxone Sodium (Rocephin) 1 gm IVPUSH Q24H [facility] Last Admin: 09/10/17 21:29 Dose: 1 gm Enoxaparin Sodium (Lovenox) 40 mg SUBCUT DAILY [facility] Last Admin: 09/11/17 08:33 Dose: 40 mg Glimepiride (Amaryl) 1 mg PO DAILY [facility] Last Admin: 09/11/17 08:31 Dose: 1 mg Guaifenesin (Robitussin) 100 mg PO Q6H PRN PRN Reason: Cough Azithromycin 500 mg/ Sodium (Chloride) 250 mls @ 250 mls/hr IV Q24H [facility] Last Infusion: 09/10/17 21:24 Dose: Infused Insulin Aspart (Novolog) 0 unit SUBCUT QIDACANDBED [facility]; Protocol Last Admin: 09/11/17 08:30 Dose: 2 unit Magnesium Hydroxide (Milk Of Magnesia) 30 ml PO Q12H PRN PRN Reason: Constipation Methylprednisolone Sodium Succinate (Solu-Medrol) 125 mg IVPUSH Q12H [facility] Last Admin: 09/11/17 08:33 Dose: 125 mg Mometasone Furoate/Formoterol Fumar (Dulera 100-5 Mcg) 2 puff IH DAILY [facility] Last Admin: 09/11/17 08:32 Dose: 2 puff Morphine Sulfate (Morphine) 2 mg IVPUSH Q2H PRN PRN Reason: sever pain (7-10) Last Admin: 09/08/17 20:51 Dose: 2 mg Nicotine (Habitrol) 21 mg TRDERM DAILY [facility] Last Admin: 09/11/17 08:32 Dose: 21 mg Ondansetron HCl (Zofran) 4 mg IVPUSH Q6H PRN PRN Reason: Nausea/Vomiting Last Admin: 09/08/17 20:50 Dose: 4 mg Mucinex Fast-Max Cold-FluMucinex Fast-Max Cold-Flu 2 each PO Q4HR PRN PRN Reason: Congestion Polyethylene Glycol (Miralax) 17 gm PO DAILY PRN PRN Reason: Constipation Sodium Chloride (Saline Flush) 10 ml FLUSH ASDIRECTED PRN PRN Reason: Keep Vein Open Last Admin: 09/11/17 08:33 Dose: 10 ml Zolpidem Tartrate (Ambien) 5 mg PO BEDTIME PRN PRN Reason: Sleep Last Admin: 09/10/17 21:37 Dose: 5 mg Discontinued Medications Hydrocodone Bitart/Acetaminophen ([place] 325-10 Mg) 0.5 tab PO Q4H PRN PRN Reason: Pain (moderate 4-6) Albuterol/Ipratropium (Duoneb 3.0-0.5 Mg/3 Ml) 3 ml NEB Q6H [facility] Last Admin: 09/08/17 22:46 Dose: Not Given Albuterol/Ipratropium (Duoneb 3.0-0.5 Mg/3 Ml) 3 ml NEB Q4H [facility] Last Admin: 09/10/17 09:17 Dose: 3 ml Sodium Chloride (Normal Saline) 1,000 mls @ 999 mls/hr IV ASDIRECTED [facility] Last Admin: 09/08/17 21:24 Dose: 999 mls/hr Ceftriaxone Sodium 1 mg/ (Sodium Chloride) 100 mls @ 200 mls/hr IV Q24H [facility] Last Admin: 09/08/17 22:46 Dose: Not Given Sodium Chloride (Normal Saline) 1,000 mls @ 150 mls/hr IV ASDIRECTED [facility] Stop: 09/09/17 02:39 Last Admin: 09/08/17 22:36 Dose: 150 mls/hr Sodium Chloride (Normal Saline) 1,000 mls @ 999 mls/hr IV .BOLUS [facility] Last Admin: 09/08/17 21:26 Dose: 999 mls/hr Methylprednisolone Sodium Succinate 1,000 mg/ Sodium Chloride 108 mls @ 100 mls /hr IV Q12H [facility] Last Admin: 09/08/17 22:46 Dose: Not Given Magnesium Sulfate 2 gm/ Premix 50 mls @ 25 mls/hr IV Q2H [facility] Stop: 09/09/17 13:59 Last Admin: 09/09/17 12:45 Dose: 25 mls/hr Sodium Chloride (Normal Saline) 1,000 mls @ 175 mls/hr IV ASDIRECTED [facility] Stop: 09/09/17 22:30 Last Admin: 09/09/17 16:55 Dose: 175 mls/hr Metformin HCl (Glucophage) 500 mg PO BIDMEALS [facility] Mometasone Furoate/Formoterol Fumar (Dulera 100-5 Mcg) 2 puff IH DAILYRT [facility] Pantoprazole Sodium (Protonix) 40 mg PO ACBREAKFAST [facility] Last Admin: 09/10/17 10:51 Dose: Not Given - Exam Quality Assessment: Denies: Supplemental Oxygen General: Reports: Alert Neck: Reports: Supple Lungs: Reports: Clear to Auscultation, Normal Respiratory Effort. Denies: Wheezing Cardiovascular: Reports: Regular Rate, Regular Rhythm Extremities: Normal Inspection Skin: Reports: Warm, Dry Neurological: Reports: No New Focal Deficit
== END 2017-09-11 13:15 | disposition home or self-care (01) | DRG 871 ==
LOC: DL.ED 16:51 → DL.MS 19:36 → UNDOADMIN 19:36 → DL.MS 19:58
PROVIDERS: ADMIT Family Medicine; ATTEND Family Medicine
DX: A41.9 Sepsis, unspecified organism (principal); J18.9 Pneumonia, unspecified organism; J44.0 Chronic obstructive pulmonary disease with (acute) lower respiratory infection; J44.1 Chronic obstructive pulmonary disease with (acute) exacerbation; E87.2 Acidosis; E11.9 Type 2 diabetes mellitus without complications; F17.200 Nicotine dependence, unspecified, uncomplicated; H54.7 Unspecified visual loss; H91.90 Unspecified hearing loss, unspecified ear; M19.90 Unspecified osteoarthritis, unspecified site; E78.00 Pure hypercholesterolemia, unspecified; K21.9 Gastro-esophageal reflux disease without esophagitis; R09.1 Pleurisy; E83.42 Hypomagnesemia; M17.10 Unilateral primary osteoarthritis, unspecified knee; Z90.49 Acquired absence of other specified parts of digestive tract; Z91.030 Bee allergy status; Z79.84 Long term (current) use of oral hypoglycemic drugs; Z87.01 Personal history of pneumonia (recurrent); Z79.82 Long term (current) use of aspirin; Z79.899 Other long term (current) drug therapy; Z28.21 Immunization not carried out because of patient refusal
CPT/HCPCS: 36415; 71046; 80048; 80053; 81001; 82962; 83605; 83735; 84484; 85025; 87040; 87070; 87077; 87186; 87205; 87804; 93005; 93010; 94640; 99285; A9270-GY; J0456; J0696; J1650; J1815-GY; J2270; J2405; J2930; J3475; J7030; J7040; J7050

== ENCOUNTER 2023-12-10 10:01 | Emergency (ER) | payer MEDICARE, MEDICAID ==
[2023-12-10] MEDS ORDERED: Albuterol/Ipratropium 3.0-0.5 MG/3 ML Neb Soln NEB ONE (10:21)
[2023-12-10] MEDS ORDERED: Iopamidol 755 Mg/ML 100 ML Bottle IVPUSH ONE (10:47)
[2023-12-10 10:51] LABS: BASOPHILS PERCENT AUTO 0.3 % (0.0-1.0); EOSINOPHILS PERCENT AUTO 0.3 % (1.0-3.0); HEMATOCRIT 34.6 % (37.0-47.0); HEMOGLOBIN 11.2 g/dL (12.0-16.0); LYMPHOCYTES PERCENT AUTO 6.4 % (20.5-50.1); MEAN CORPUSCULAR HEMOGLOBIN 27.6 pg (27.0-34.0); MEAN CORPUSCULAR HGB CONC 32.4 g/dL (33.0-35.0); MEAN CORPUSCULAR VOLUME 85.2 fL (80-100); PLATELET COUNT,PLT 485 10^3/uL (150-450); RED BLOOD CELL COUNT 4.06 10^6/uL (4.2-5.4); WHITE BLOOD CELL COUNT,WBC 17.1 10^3/uL (5.0-10.0)
[2023-12-10 10:51] LABS: O2 DELIVERY DEVICE NASAL CANNULA; PCO2 ARTERIAL 49 mmHg (35-45); PH,ARTERIAL 7.38 (7.35-7.45); PO2 ARTERIAL 66 mmHg (70-100)
[2023-12-10 10:52] LABS: ALLEN TEST y; BASE EXCESS ARTERIAL 3 mmol/L ((-2)-(+3)); BICARBONATE,ARTERIAL 27.9 mmol/L (22-26); O2 SATURATION ARTERIAL 90 % (95-100)
[2023-12-10 11:04] LABS: INR 1.1 (0.9-1.2); PROTHROMBIN TIME 11.3 SEC (9.0-12.0)
[2023-12-10 11:12] LABS: ALANINE AMINOTRANSFERASE,ALT 170 U/L (14-59); ALBUMIN 2.1 g/dL (3.4-5.0); ALKALINE PHOSPHATASE 105 U/L (46-116); ANION GAP 16.7 mEq/L (7-13); ASPARTATE AMNIOTRANSFERASE,AST 116 U/L (15-37); BILIRUBIN TOTAL 0.5 mg/dL (0.2-1.0); BLOOD UREA NITROGEN,BUN 94 mg/dL (7-18); BUN/CREATININE RATIO 11.7 (No establ ref range); CALCIUM 7.1 mg/dL (8.5-10.1); CARBON DIOXIDE,CO2 32 mmol/L (21-32); CHLORIDE,CL 88 mmol/L (98-107); EST CRCL DRUG DOSING (CG) 5.38 mL/min; GLUCOSE RANDOM 119 mg/dL (70-99); MAGNESIUM 2.2 mg/dL (1.8-2.4); POTASSIUM,K 4.7 mmol/L (3.5-5.1); PROTEIN TOTAL,TP 6.2 g/dL (6.4-8.2); SODIUM,NA 132 mmol/L (136-145)
[2023-12-10 11:17] LABS: A/G RATIO 0.51; CREATININE 8.01 mg/dL (0.55-1.02); ESTIMATED GFR 5 mL/min (>=60)
[2023-12-10 11:18] LABS: ETHANOL BLOOD MEDICAL < 3 mg/dL (0)
[2023-12-10] MEDS: methylPREDNISolone Sodium Succinate 125 MG/2 ML SDV IVPUSH ONE (11:29)
[2023-12-10] MEDS: cefTRIAXone 1 GM Vial IVPUSH ONE (11:29)
[2023-12-10] MEDS: Aspirin 300 MG Supp ONE (11:30)
[2023-12-10] MEDS: Aspirin 325 MG Tab PO ONE (11:30)
[2023-12-10 11:37] LABS: APPEARANCE,URINE CLEAR (CLEAR); BILIRUBIN,URINE SMALL (NEGATIVE); COLOR,URINE YELLOW (YELLOW); GLUCOSE,URINE NEGATIVE (NEGATIVE); KETONES,URINE NEGATIVE (NEGATIVE); LEUKOCYTE ESTERASE,URINE NEGATIVE (NEGATIVE); NITRITE,URINE NEGATIVE (NEGATIVE); OCCULT BLOOD,URINE MODERATE (NEGATIVE); PROTEIN,URINE >=300 (NEGATIVE); UROBILINOGEN,URINE 0.2 mg/dL (0.2-1.0)
[2023-12-10 11:41] LABS: LACTIC ACID 1.2 mmol/L (0.4-2.0)
[2023-12-10 11:42] LABS: AMPHETAMINES,URINE NEGATIVE (NEGATIVE); BARBITURATES,URINE NEGATIVE (NEGATIVE); BENZODIAZEPINE,URINE NEGATIVE (NEGATIVE); MDMA (ECSTASY), URINE NEGATIVE (NEGATIVE); METHADONE,URINE NEGATIVE (NEGATIVE); METHAMPHETAMINES,URINE NEGATIVE (NEGATIVE); OPIATES,URINE NEGATIVE (NEGATIVE); OXYCODONE,URINE POSITIVE (NEGATIVE); PHENCYCLIDINE,URINE NEGATIVE (NEGATIVE); TCA,URINE NEGATIVE (NEGATIVE)
[2023-12-10 11:52] LABS: RBC,URINE 0-5 /HPF (0-5); WBC,URINE 0-5 /HPF (0-5/HPF)
[2023-12-10 11:53] LABS: AMORPHOUS SEDIMENT,URINE OCCASIONAL /HPF (NOT SEEN); BACTERIA,URINE MODERATE /HPF (0-FEW/HPF); EPITHELIAL CELLS,URINE FEW /HPF (NOT SEEN); GRANULAR CASTS,URINE FEW
[2023-12-10 16:27] VITALS: BP 138/63; PULSE 71
== END 2023-12-10 11:52 ==
LOC: DL.ED 10:01
DX: I21.4 Non-ST elevation (NSTEMI) myocardial infarction (principal); I63.9 Cerebral infarction, unspecified; N17.9 Acute kidney failure, unspecified; J44.1 Chronic obstructive pulmonary disease with (acute) exacerbation; E87.1 Hypo-osmolality and hyponatremia; M19.90 Unspecified osteoarthritis, unspecified site; E78.00 Pure hypercholesterolemia, unspecified; E11.9 Type 2 diabetes mellitus without complications; Z91.030 Bee allergy status; Z88.8 Allergy status to other drugs, medicaments and biological substances; Z79.82 Long term (current) use of aspirin; Z79.84 Long term (current) use of oral hypoglycemic drugs; Z79.899 Other long term (current) drug therapy; Z90.49 Acquired absence of other specified parts of digestive tract
CPT/HCPCS: 36415; 36600; 70450; 80053; 80305; 80307; 81001; 82140; 82803; 82947; 83605; 83735; 84484; 85025; 85610; 87804; 93005; 96374; 96375; 99285; J0696; J2919; U0002